=== PATIENT | male | born 1975 | race Caucasian/White ===

== ENCOUNTER 2019-09-02 08:46 | Outpatient (RCR) | payer BC, SELFPAY ==
--- NOTE | 2019-09-02 10:15 | PTOPEVAL ---
Thank you for referring Boris Saravia to [facility]. Please review, sign, date and return this plan of care [facility]. I agree with and certify that the following plan of care is medically necessary. Referring Physician Date Admitting Provider: Attending Provider: Jorge Mendez DO Referring Provider: *PT Outpatient Evaluation Start: 09/02/19 09:02 Freq: Status: Active Protocol: Document 09/02/19 09:02 J (Rec: 09/02/19 09:51 [id number]) Therapy Assessment Status Assessment Status Assessment Status Evaluation Evaluation Information Problem Diagnosis low back pain Onset 08/27/19 Additional Evaluation Detail oswestry = 48% functionally declined Subjective Information patient reports he has been Query Text:As Reported By Patient/ having pain in the R hip and Family leg for about 1 week. he reports he has been to the MD who feels he may have a herniated disc. patient reports the pain is less in the morning, but gets worse with more activity until he is unable to tolerate it any longer. he reports no injury, but reports he was moving a washer and dryer and might have tweaked his back. patient he has pain and some tingling in his foot. he reports the pain will progressively get worse and further down the leg with increased activities. Prior Level of Function Comments Additional Prior Level of Function prior to the , no issues Comments with the back or R LE at all. he reports he does work at [employer]. 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 patient is currently off work. he reports no imaging as of this date. he reports no change in medications, but did have a shot of toradol at the doctors office. Pain Assessment Timing of Pain Assessment Timing of Pain Assessment Assessment Pain Scale Pain Scale Used Numeric (1 - 10) Self Report Pain Assessment Lower Back Reported Pain Level 2 Pain Description
--- NOTE | 2019-09-12 13:57 | PCPTNOTE ---
patient called and cancelled appt due to flat tire. ROBERT
--- NOTE | 2019-09-14 16:08 | PCPTNOTE ---
patient cancelled appt today. ROBERT
--- NOTE | 2019-11-29 16:26 | PCPTNOTE ---
11/29/19 - patient has not been to therapy in several months. as of this date, patient will be DC'd from skilled PT services, and all progress towards goals will be taken from patients most recent evaluation/note. ZECHARIAH
== END 2019-09-23 09:38 | disposition home or self-care (01) ==
LOC: CHSPT 08:46
PROVIDERS: PCP Family Medicine; Visit Provider Family Medicine
DX: M54.5 Low back pain (principal)
CPT/HCPCS: 97014; 97110; 97161; G0283

== ENCOUNTER 2020-03-05 08:54 | Outpatient (CLI) | payer OTHER, SELFPAY ==
[2020-03-05 09:41] LABS: Hemoglobin A1C 6.3 % (<5.7)
== END 2020-03-05 08:55 | disposition home or self-care (01) ==
LOC: CHSLAB 08:59
PROVIDERS: PCP Family Medicine; Visit Provider Family Medicine
DX: E11.9 Type 2 diabetes mellitus without complications (principal); K21.9 Gastro-esophageal reflux disease without esophagitis; J44.9 Chronic obstructive pulmonary disease, unspecified; F17.200 Nicotine dependence, unspecified, uncomplicated; E66.9 Obesity, unspecified
CPT/HCPCS: 36415; 83036

== ENCOUNTER 2020-10-02 11:16 | Outpatient (CLI) | payer OTHER, SELFPAY ==
[2020-10-02 12:27] LABS: Alanine Aminotransferase 13 U/L (16-63); Albumin Level 3.7 g/dL (3.4-5.0); Alkaline Phosphatase 71 U/L (46-116); Anion Gap 11 mmol/L (8-16); Aspartate Amino Transferase 7 U/L (15-37); Bilirubin,Total 0.4 mg/dL (0.00-1.00); Blood Urea Nitrogen 10 mg/dL (7-18); Calcium 9.2 mg/dL (8.5-10.1); Carbon Dioxide 26 mmol/L (21-32); Chloride 100 mmol/L (98-108); Estimated Glomerular Filt Rate > 60; Glucose 117 mg/dL (70-99); Osmolality Calculated 284 mOsm/kg (285-295); Potassium 4.9 mmol/L (3.5-5.1); Sodium 137 mmol/L (136-145)
== END 2020-10-02 11:17 | disposition home or self-care (01) ==
LOC: CHSLAB 11:21
PROVIDERS: PCP Family Medicine; Visit Provider Nurse Practitioner Psychiatric/Mental Health
DX: Z79.899 Other long term (current) drug therapy (principal)
CPT/HCPCS: 36415; 80053; 80164

== ENCOUNTER 2020-12-04 14:20 | Outpatient (CLI) | payer OTHER, SELFPAY ==
[2020-12-06 19:16] LABS: Rubella IgG Antibody 2.15 Index
[2020-12-07 13:39] LABS: Hepatitis B Surface Antibody Nonreactive (Nonreactive)
== END 2020-12-04 14:21 | disposition home or self-care (01) ==
LOC: CHSLAB 14:23
PROVIDERS: PCP Family Medicine; Visit Provider Family Medicine
DX: Z02.0 Encounter for examination for admission to educational institution (principal)
CPT/HCPCS: 36415; 86706; 86735; 86762; 86765; 86787

== ENCOUNTER 2021-08-09 10:16 | Outpatient (CLI) | payer OTHER, SELFPAY ==
--- NOTE | ~2021-08-09 | XR_ITS ---
EXAMINATION: XR ankle RT min 3V INDICATION: Right ankle pain TECHNIQUE: Four views of the right ankle are obtained. COMPARISON: None available FINDINGS: There is no fracture, dislocation, or subluxation. The bones, soft tissues, and joint space s are normal. IMPRESSION: 1. No acute osseous abnormality. Reviewed, dictated and finalized at location B.
== END 2021-08-09 10:17 | disposition home or self-care (01) ==
LOC: CHSIMG 10:18
PROVIDERS: PCP Family Medicine; Visit Provider Family Medicine
DX: M25.571 Pain in right ankle and joints of right foot (principal)
CPT/HCPCS: 73610

== ENCOUNTER 2021-09-16 13:11 | Outpatient (CLI) | payer OTHER, SELFPAY ==
[2021-09-16 13:20] LABS: Hematocrit 37.4 % (40.0-54.0); Hemoglobin 13.1 g/dL (14.0-18.0); Mean Corpuscular Hemoglobin 34.5 pg (27.0-31.0); Mean Corpuscular Volume 98.4 fL (78.0-102.0); Mean Platelet Volume 10.7 fl (8.7-11.0); Platelet Count Result 190 K/mm3 (150-420); Red Cell Distribution Width 12.6 % (11.6-14.4); White Blood Count 7.3 K/mm3 (4.8-10.8)
[2021-09-16 13:30] LABS: Hemoglobin A1C 5.9 % (<5.7)
[2021-09-16 13:37] LABS: Alanine Aminotransferase 12 U/L (16-63); Albumin Level 3.6 g/dL (3.4-5.0); Alkaline Phosphatase 53 U/L (46-116); Anion Gap 4 mmol/L (8-16); Aspartate Amino Transferase < 10 U/L (15-37); Bilirubin,Total 0.3 mg/dL (0.00-1.00); Blood Urea Nitrogen 8 mg/dL (7-18); Calcium 8.7 mg/dL (8.5-10.1); Carbon Dioxide 30 mmol/L (21-32); Chloride 100 mmol/L (98-108); Cholesterol 88 mg/dL (0-200); Estimated Glomerular Filt Rate > 60; Glucose 106 mg/dL (70-99); HDL Direct 44 mg/dL (40-60); LDL Cholesterol Calculated 32 mg/dL (<130); Osmolality Calculated 276 mOsm/kg (285-295); Potassium 4.4 mmol/L (3.5-5.1); Sodium 134 mmol/L (136-145); Triglycerides 60 mg/dL (0-150)
== END 2021-09-16 13:12 | disposition home or self-care (01) ==
LOC: CHSLAB 13:13
PROVIDERS: PCP Family Medicine; Visit Provider Family Medicine
DX: E11.9 Type 2 diabetes mellitus without complications (principal); I10 Essential (primary) hypertension
CPT/HCPCS: 36415; 80053; 80061; 83036; 85027

== ENCOUNTER 2021-11-07 07:08 | Emergency (ER) | payer OTHER, SELFPAY ==
[2021-11-07] VITALS (7 sets, daily range): BP systolic 122–154; BP diastolic 68–91; PULSE 61–85; RESP 14–20; TEMP 36.3–37.1; O2SAT 97–100
--- NOTE | ~2021-11-07 | CT_ITS ---
EXAMINATION: CTA chest PE protocol DATE: 11/07/2021 08:47 INDICATION: Left anterior chest pain. Left arm pain. TECHNIQUE: Computed tomography angiography (CTA) of the chest was performed with 100 mL Omnipaque-350 intravenous contrast timed to evaluate the pulmonary arteries. Coronal maximum intensity projection 3D-reconstructions were created by the technologist. Automated exposure control and iterative reconst ruction technique were employed. The dose-length product was 569.52 mGy-cm. COMPARISON: Chest CT 07/13/2012 FINDINGS: There is mild emphysema. There are patchy groundglass opacities in the lower lobes, right m iddle lobe, and lingula. No pleural effusion. There is moderate stenosis of proximal left subclavian artery. The heart size is normal. There are coronary artery calcifications. No pericardial effusion. There is no pulmonary embolus. There is mild thoracic spondylosis. IMPRESSION: 1. No pulmonary embolus. 2. Patchy groundglass opacities in the lower lungs suspicious for atypical pneumonia such as COVID-19 pneumonia. 9 3. Mild emphysema. Reviewed, dictated and finalized at location A. IMPRESSION: 1. No pulmonary embolus. 2. Patchy groundglass opacities in the lower lungs suspicious for atypical pneu monia such as COVID-19 pneumonia. 9 3. Mild emphysema.
--- NOTE | ~2021-11-07 | XR_ITS ---
EXAMINATION: XR chest 1V portable DATE: 11/07/2021 07:37 INDICATION: Left chest pain. TECHNIQUE: A single frontal view of the chest was obtained. COMPARISON: Chest single view 08/09/16, chest CT 07/13/2012 FINDINGS: There are mild airspace opacities in the lower lung zones. No pleural effusion or pneumotho rax. The heart size is normal. IMPRESSION: 1. Mild airspace opacities in the lower lung zones, consistent with atelectasis versus pneumonia. Reviewed, dictated and finalized at location A.
--- NOTE | 2021-11-07 07:17 | ED.CHESTPAIN ---
HPI - Chest Pain General Chief Complaint: Chest Pain Stated Complaint: chest pain Time Seen by Provider: 11/07/21 07:17 Source: patient Mode of arrival: ambulatory History of Present Illness HPI narrative: 45-year-old male with a history of smoking, hypertension, diabetes mellitus, dyslipidemia presented to the ER with a 1 hour history of -- left chest pain radiating to his left neck and shoulder. The pain is rated as 8/10. The pain came on while the patient was resting. Pain is worse on deep breathing. No nausea/ vomiting. No shortness of breath. No prior episodes of similar pain. pain is intermittent. No cough or sputum production. MD complaint: chest pain Onset (ago): hour(s) ( Started 1 hour ago) Timing of current episode: constant Onset: during rest Pain location: left chest Pain radiation: left arm and neck Pain scale (0-10): 8 Quality: aching and sharp Relieving factors: nothing Exacerbating factors: inspiration Treatment prior to arrival: none Risk Factors Coronary artery disease risk factors: diabetes, smoking history, hyperlipidemia and hypertension Thoracic aortic dissection risk factors: longstanding hypertension Related Data Home Medications Medication Instructions Recorded Confirmed divalproex 500 mg tablet,delayed 500 mg PO Q12H 02/11/19 11/07/21 release (Depakote) buspirone 10 mg tablet 10 mg PO TID 04/13/19 11/07/21 escitalopram oxalate 10 mg tablet 10 mg PO BID 07/11/19 11/07/21 (Lexapro) paliperidone palmitate 234 mg/1.5 234 mg IM Q30D 02/11/21 11/07/21 mL intramuscular syringe (Invega Sustenna) Allergies Allergy/AdvReac Type Severity Reaction Status Date / Time Penicillins Allergy Intermediate Unknown Verified 11/07/21 07:18 varenicline [Chantix] Allergy Intermediate Unknown Verified 09/16/21 07:30 Sulfa (Sulfonamide Allergy Mild Unknown Verified 09/16/21 07:30 Antibiotics) Review of Systems Review of Systems: All systems reviewed & are unremarkable except as noted in HPI and below Constitutional: Constitutional: Reports as per HPI and Reports no additional constitutional complaints Eyes: Eyes: Reports as per HPI and Reports no additional eye complaints ENT: Reports system reviewed and no additional complaints, except as documented and Reports as per HPI Cardiovascular: Cardiovascular: Reports as per HPI, Reports no additional cardiovascular complaints, Reports chest pain and Reports radiating jaw, neck or arm pain Respiratory: Respiratory: Reports as per HPI and Reports no additional respiratory complaints Gastrointestinal: Gastrointestinal: Reports as per HPI and Reports no additional gastrointestinal complaints Genitourinary: Genitourinary: Reports no additional male genitourinary complaints and Reports as per HPI Musculoskeletal: Musculoskeletal: Reports no additional musculoskeletal complaints and Reports as per HPI Integumentary/Breasts: Skin/Breast: Reports system reviewed and no additional complaints, except as docu and Reports as per HPI Neurologic: Reports system reviewed and no additional complaints, except as documented and Reports as per HPI Psychiatric: Psychiatric: Reports no additional psychiatric complaints and Reports as per HPI Endocrine: Endocrine: Reports no additional endocrine complaints and Reports as per HPI Hematologic/Lymphatic: Hematologic/Lymphatic: Reports no additional hematologic/lymphatic complaints and Reports as per HPI Allergic/Immunologic: Allergic/Immunologic: Reports no additional allergic/immunologic complaints and Reports as per HPI PMFSH Past Medical History Medical History Anxiety and depression COPD (chronic obstructive pulmonary disease) Essential hypertension LAZARUS (generalized anxiety disorder) GERD without esophagitis Insomnia disorder with non-sleep disorder mental comorbidity Nicotine dependence Obesity (BMI 30-39.9) Schizoaffective disorder, bipolar type
--- NOTE | 2021-11-07 07:18 | ECG_ITS ---
Measurements Intervals [place] Rate: 78 P: 51 NH: 157 QRS: 88 QRSD: 85 T: 41 QT: 367 QTc: 419 Interpretive Statements SINUS RHYTHM NORMAL ECG NO PREVIOUS ECG AVAILABLE FOR COMPARISON Electronically Signed On 11-07-2021 15:19:43 CDT by Connor Dale M.D.
[2021-11-07] MEDS: ASPIRIN 81 MG CHEWABLE TABLET 324 MG PO (07:37)
[2021-11-07] MEDS: MORPHINE SULFATE (*CRX) 2 MG/ML INJ IV PUSH (07:38)
[2021-11-07 07:42] LABS: Basophils Absolute Auto 0.04 K/mm3 (0.00-0.10); Basophils Percent Auto 0.7 % (0.0-1.0); Eosinophils Percent Auto 1.7 % (1.0-6.0); Hematocrit 38.1 % (40.0-54.0); Hemoglobin 13.2 g/dL (14.0-18.0); Immature Granulocyte Absolute 0.01 K/mm3 (0.00-0.00); Immature Granulocyte Percent A 0.2 % (0.0-0.0); Lymphocytes Absolute Auto 2.43 K/mm3 (1.10-4.50); Lymphocytes Percent Auto 40.9 % (18.0-42.0); Mean Corpuscular HGB Conc 34.6 g/dL (32.0-36.0); Mean Corpuscular Hemoglobin 34.6 pg (27.0-31.0); Mean Corpuscular Volume 99.7 fL (78.0-102.0); Mean Platelet Volume 11.2 fl (8.7-11.0); Monocytes Absolute Auto 0.47 K/mm3 (0.10-0.90); Monocytes Percent Auto 7.9 % (2.0-11.0); Neutrophils Absolute Auto 2.9 K/mm3 (1.7-7.2); Neutrophils Percent Auto 48.6 % (50.0-70.0); Platelet Count Result 210 K/mm3 (150-420); Red Blood Count 3.82 M/mm3 (4.70-6.10); Red Cell Distribution Width 12.8 % (11.6-14.4); White Blood Count 5.9 K/mm3 (4.8-10.8)
[2021-11-07 08:00] LABS: Alanine Aminotransferase 11 U/L (16-63); Albumin Level 3.4 g/dL (3.4-5.0); Alkaline Phosphatase 56 U/L (46-116); Anion Gap 13 mmol/L (8-16); Aspartate Amino Transferase < 10 U/L (15-37); Bilirubin,Total 0.2 mg/dL (0.00-1.00); Blood Urea Nitrogen 10 mg/dL (7-18); Calcium 8.8 mg/dL (8.5-10.1); Carbon Dioxide 24 mmol/L (21-32); Chloride 101 mmol/L (98-108); Estimated CRCL calculation 79 ml/min; Estimated Glomerular Filt Rate > 60; Glucose 148 mg/dL (70-99); Osmolality Calculated 288 mOsm/kg (285-295); Potassium 4.1 mmol/L (3.5-5.1); Sodium 138 mmol/L (136-145); Total Protein 6.7 g/dL (6.4-8.2)
[2021-11-07 08:03] LABS: Troponin I 5.7 ng/L (0.00-60.4)
[2021-11-07 08:03] LABS: INR 0.9; NT Pro B Type Natriuretic Pept 169 pg/mL (0-125); Prothrombin Time 10.3 Seconds (9.50-12.10)
[2021-11-07 08:07] LABS: D Dimer 0.71 mg/L (0.19-0.50)
[2021-11-07] MEDS: SODIUM CHLORIDE 0.9% IV 500 ML 999 ML IV CONT (08:36)
[2021-11-07 09:47] LABS: Lactic Acid Reflex 2.6 mmol/L (0.4-2.0)
[2021-11-07 10:06] LABS: SARS-CoV-2 RNA PCR Negative (Negative)
[2021-11-07] MEDS: LACTATED RINGERS 1,000 ML 999 ML IV CONT (10:07)
[2021-11-07 10:28] LABS: Lactic Acid 0.7 mmol/L (0.4-2.0)
[2021-11-07 10:28] LABS: Reflex Lactic Acid Yes or No Add Lactic
[2021-11-07 11:48] LABS: Troponin I 6.2 ng/L (0.00-60.4)
== END 2021-11-07 12:29 | disposition home or self-care (01) ==
PROVIDERS: Emergency Provider Internal Medicine Critical Care Medicine; PCP Family Medicine
DX: J18.9 Pneumonia, unspecified organism (principal); R07.81 Pleurodynia; Z20.822 Contact with and (suspected) exposure to COVID-19; F17.200 Nicotine dependence, unspecified, uncomplicated
CPT/HCPCS: 36415; 71045; 71275; 80053; 83605; 83880; 84484; 85025; 85380; 85610; 85730; 87040; 93005; 96361; 96374; 99284; A9270; C9803; J2270; J7040; J7120; Q9967; U0003; U0005

== ENCOUNTER 2022-08-26 06:36 | Outpatient (CLI) | payer OTHER, SELFPAY ==
--- NOTE | ~2022-08-26 | MR_ITS ---
EXAMINATION: MR brain/brain stem wo con DATE: 08/26/2022 07:45 INDICATION: Headache. TECHNIQUE: Magnetic resonance imaging (MRI) of the brain and brainstem was performed without intraven ous contrast. COMPARISON: Brain MRI 08/16/2016 FINDINGS: There are a few foci of nonspecific increased T2-weighted signal intensity in the cerebral white matter, which is within normal limits for the patient's age. There is no intracranial hemorrhag e, acute infarction, or abnormal intracranial mass lesion. The ventricles are normal in size. The orb its are normal. The mastoid air cells are normal. The paranasal sinuses are clear. IMPRESSION: 1. Normal aging brain. Reviewed, dictated and finalized at location A. IMPRESSION: 1. Normal aging brain.
--- NOTE | ~2022-08-26 | XR_ITS ---
XR lumbar spine 2-3V 08/26/2022 07:18 Indication: Low back pain Procedure: 3 views lumbar spine Comparison: 09/07/2015 Findings: Vertebral body heights are maintained. No fracture, subluxation or dislocation. No evidence for spondylolisthesis. Pedicles intact. Sacral foramen are symmetric. There is mild disc narrowing a t L5-S1. There is mild facet hypertrophy at L5-S1. Impression: 1: Mild lumbar spondylosis. Reviewed, dictated and finalized at location L. Impression: 1: Mild lumbar spondylosis.
== END 2022-08-26 06:37 | disposition home or self-care (01) ==
PROVIDERS: PCP Family Medicine
DX: G43.109 Migraine with aura, not intractable, without status migrainosus (principal); M47.896 Other spondylosis, lumbar region
CPT/HCPCS: 70551; 72100

== ENCOUNTER 2022-09-05 08:59 | Outpatient (CLI) | payer OTHER, SELFPAY ==
[2022-09-05 09:54] LABS: Prostate Specific Antigen 0.2 ng/mL (< OR = 4.0)
[2022-09-05 12:46] LABS: Appearance Urine Clear (Clear); Bilirubin Urine Negative (Negative); Blood Urine Negative (Negative); Color Urine Light Yellow (Yellow); Glucose Urine UA Negative (Negative); Ketones Urine Negative (Negative); Leukocyte Esterase Ur Negative LEU/UL (Negative); Nitrate Urine Negative (Negative); Protein Urine Negative (Negative); Urobilinogen Urine 0.2 mg/dL (0.2-1.0)
[2022-09-05 12:49] LABS: Add Urine Microscopic? NO
== END 2022-09-05 09:00 | disposition home or self-care (01) ==
PROVIDERS: PCP Family Medicine; Visit Provider Family Medicine
DX: R35.1 Nocturia (principal); R35.0 Frequency of micturition
CPT/HCPCS: 36415; 81003; 84153; 88305; G0103

== ENCOUNTER 2022-09-09 07:17 | Outpatient (CLI) | payer OTHER, SELFPAY ==
--- NOTE | ~2022-09-09 | US_ITS ---
. EXAMINATION: US retroperitoneal limited DATE: 09/09/2022 07:53 INDICATION: Frequency of micturition. Postvoid residual. TECHNIQUE: Multiple ultrasound grayscale images of the kidneys were obtained. COMPARISON: CT abdomen and pelvis 08/09/2016 FINDINGS: The right kidney measures 10.8 x 5.2 x 5.9 cm. The left kidney measures 11.6 x 4.6 x 5.5 cm. The kidn eys demonstrate normal parenchymal echogenicity. There is no hydronephrosis. The bladder is normal. T he prevoid urinary volume is 28 mL. The postvoid urinary volume is 33 mL. IMPRESSION: 1. Normal kidneys. No hydronephrosis. 2. Bladder not well distended to begin the exam. Normal postvoid residual. Reviewed, dictated and finalized at location A.
== END 2022-09-09 07:18 | disposition home or self-care (01) ==
LOC: CHSIMG 07:18
PROVIDERS: PCP Family Medicine; Visit Provider Family Medicine
DX: R35.0 Frequency of micturition (principal)
CPT/HCPCS: 76775

== ENCOUNTER 2023-01-02 10:25 | Outpatient (CLI) | payer OTHER, SELFPAY ==
[2023-01-02 10:40] LABS: Basophils Absolute Auto 0.05 K/mm3 (0.00-0.10); Basophils Percent Auto 0.8 % (0.0-1.0); Eosinophils Absolute Auto 0.09 K/mm3 (0.02-0.50); Eosinophils Percent Auto 1.5 % (1.0-6.0); Hemoglobin 13.7 g/dL (14.0-18.0); Immature Granulocyte Absolute 0.01 K/mm3 (0.00-0.00); Immature Granulocyte Percent A 0.2 % (0.0-0.0); Lymphocytes Absolute Auto 2.72 K/mm3 (1.10-4.50); Lymphocytes Percent Auto 44.7 % (18.0-42.0); Mean Corpuscular HGB Conc 34.3 g/dL (32.0-36.0); Mean Corpuscular Hemoglobin 33.8 pg (27.0-31.0); Mean Corpuscular Volume 98.8 fL (78.0-102.0); Monocytes Absolute Auto 0.49 K/mm3 (0.10-0.90); Monocytes Percent Auto 8.1 % (2.0-11.0); Neutrophils Absolute Auto 2.7 K/mm3 (1.7-7.2); Neutrophils Percent Auto 44.7 % (50.0-70.0); Platelet Count Result 230 K/mm3 (150-420); Red Blood Count 4.05 M/mm3 (4.70-6.10); Red Cell Distribution Width 12.9 % (11.6-14.4); White Blood Count 6.1 K/mm3 (4.8-10.8)
--- NOTE | 2023-01-02 10:46 | ECG_ITS ---
Measurements Intervals [place] Rate: 67 P: 55 [place]: 158 QRS: 68 QRSD: 84 T: 72 QT: 392 QTc: 417 Interpretive Statements SINUS RHYTHM NORMAL ECG COMPARED TO ECG 11/07/2021 07:13:11 NO SIGNIFICANT CHANGES Electronically Signed On 01-02-2023 11:30:44 CDT by Nhan Aguilera D.O.
[2023-01-02 11:09] LABS: Alanine Aminotransferase 11 U/L (16-63); Albumin Level 3.8 g/dL (3.4-5.0); Alkaline Phosphatase 61 U/L (46-116); Anion Gap 8 mmol/L (8-16); Aspartate Amino Transferase < 10 U/L (15-37); Bilirubin,Total 0.4 mg/dL (0.00-1.00); Blood Urea Nitrogen 6 mg/dL (7-18); Calcium 9.4 mg/dL (8.5-10.1); Carbon Dioxide 27 mmol/L (21-32); Chloride 104 mmol/L (98-108); Cholesterol 115 mg/dL (0-200); Estimated Glomerular Filt Rate > 60; Glucose 105 mg/dL (70-99); HDL Direct 49 mg/dL (40-60); LDL Cholesterol Calculated 52 mg/dL (<130); Osmolality Calculated 285 mOsm/kg (285-295); Potassium 4.7 mmol/L (3.5-5.1); Sodium 139 mmol/L (136-145); Thyroid Stimulating Hormone 1.96 uIU/mL (0.36-3.74); Total Protein 6.4 g/dL (6.4-8.2); Triglycerides 69 mg/dL (0-150)
[2023-01-06 12:52] LABS: Vitamin D 25 Hydroxy 19 ng/mL (30-100)
== END 2023-01-02 10:26 | disposition home or self-care (01) ==
LOC: CHSLAB 10:26
PROVIDERS: PCP Nurse Practitioner Family; Visit Provider Nurse Practitioner Family
DX: I95.9 Hypotension, unspecified (principal)
CPT/HCPCS: 36415; 80053; 80061; 82306; 84443; 85025; 93005

== ENCOUNTER 2023-01-14 13:29 | Outpatient (CLI) | payer OTHER, SELFPAY ==
[2023-01-14 13:40] LABS: Appearance Urine Clear (Clear); Bilirubin Urine Negative (Negative); Blood Urine Negative (Negative); Color Urine Yellow (Yellow); Glucose Urine UA Negative (Negative); Ketones Urine Negative (Negative); Leukocyte Esterase Ur Negative (Negative); Nitrate Urine Negative (Negative); Protein Urine Negative (Negative)
[2023-01-14 13:41] LABS: Add Urine Microscopic? NO
== END 2023-01-14 13:30 | disposition home or self-care (01) ==
PROVIDERS: PCP Family Medicine; Visit Provider Nurse Practitioner Family
DX: I95.9 Hypotension, unspecified (principal)
CPT/HCPCS: 81003; 87086

== ENCOUNTER 2023-01-23 16:26 | Outpatient (CLI) | payer OTHER, SELFPAY ==
[2023-01-23 16:38] LABS: Occult Blood Negative (Negative)
== END 2023-01-23 16:27 | disposition home or self-care (01) ==
LOC: CHSLAB 16:27
PROVIDERS: PCP Nurse Practitioner Family; Visit Provider Nurse Practitioner Family
DX: R42 Dizziness and giddiness (principal)
CPT/HCPCS: 82272

== ENCOUNTER 2023-05-21 10:09 | Outpatient (CLI) | payer OTHER, MEDICAID, SELFPAY ==
[2023-05-21 10:33] LABS: Basophils Absolute Auto 0.04 K/mm3 (0.00-0.10); Basophils Percent Auto 0.7 % (0.0-1.0); Eosinophils Absolute Auto 0.12 K/mm3 (0.02-0.50); Hematocrit 37.4 % (40.0-54.0); Hemoglobin 12.8 g/dL (14.0-18.0); Immature Granulocyte Absolute 0.02 K/mm3 (0.00-0.00); Immature Granulocyte Percent A 0.3 % (0.0-0.0); Lymphocytes Absolute Auto 2.67 K/mm3 (1.10-4.50); Lymphocytes Percent Auto 44.3 % (18.0-42.0); Mean Corpuscular HGB Conc 34.2 g/dL (32.0-36.0); Mean Corpuscular Hemoglobin 32.9 pg (27.0-31.0); Mean Corpuscular Volume 96.1 fL (78.0-102.0); Mean Platelet Volume 9.8 fl (8.7-11.0); Monocytes Absolute Auto 0.38 K/mm3 (0.10-0.90); Monocytes Percent Auto 6.3 % (2.0-11.0); Neutrophils Absolute Auto 2.8 K/mm3 (1.7-7.2); Neutrophils Percent Auto 46.4 % (50.0-70.0); Platelet Count Result 214 K/mm3 (150-420); Red Blood Count 3.89 M/mm3 (4.70-6.10); Red Cell Distribution Width 12.5 % (11.6-14.4)
[2023-05-21 10:43] LABS: Hemoglobin A1C 5.6 % (<5.7)
[2023-05-21 11:40] LABS: Alanine Aminotransferase 20 U/L (16-63); Albumin Level 3.8 g/dL (3.4-5.0); Alkaline Phosphatase 74 U/L (46-116); Anion Gap 9 mmol/L (8-16); Aspartate Amino Transferase 14 U/L (15-37); Bilirubin Direct 0.1 mg/dL (0-0.2); Bilirubin,Total 0.3 mg/dL (0.00-1.00); Blood Urea Nitrogen 13 mg/dL (7-18); Calcium 8.7 mg/dL (8.5-10.1); Carbon Dioxide 25 mmol/L (21-32); Chloride 105 mmol/L (98-108); Cholesterol 117 mg/dL (0-200); Estimated Glomerular Filt Rate > 60; Glucose 113 mg/dL (70-99); HDL Direct 59 mg/dL (40-60); LDL Cholesterol Calculated 48 mg/dL (<130); Osmolality Calculated 289 mOsm/kg (285-295); Potassium 4.5 mmol/L (3.5-5.1); Sodium 139 mmol/L (136-145); Thyroid Stimulating Hormone 1.46 uIU/mL (0.36-3.74); Total Protein 6.6 g/dL (6.4-8.2); Triglycerides 49 mg/dL (0-150); Vitamin B12 609 pg/mL (193-986)
[2023-05-21 11:47] LABS: Folic Acid > 20.0 ng/mL (8.6->20)
[2023-05-26 12:12] LABS: Vitamin D 25 Hydroxy 28 ng/mL (30-100)
== END 2023-05-21 10:10 | disposition home or self-care (01) ==
PROVIDERS: PCP Nurse Practitioner Family; Visit Provider Nurse Practitioner Psychiatric/Mental Health
DX: I10 Essential (primary) hypertension (principal); J44.9 Chronic obstructive pulmonary disease, unspecified; E78.5 Hyperlipidemia, unspecified; R63.4 Abnormal weight loss; F31.9 Bipolar disorder, unspecified; F90.9 Attention-deficit hyperactivity disorder, unspecified type; F51.01 Primary insomnia; Z79.899 Other long term (current) drug therapy
CPT/HCPCS: 36415; 80053; 80061; 82248; 82306; 82607; 82746; 83036; 84439; 84443; 85025

== ENCOUNTER 2023-06-12 15:29 | Outpatient (CLI) | payer MEDICAID, SELFPAY ==
--- NOTE | ~2023-06-12 | XR_ITS ---
EXAMINATION: XR chest 2V DATE: 06/12/2023 15:53 INDICATION: Chest pain on breathing. TECHNIQUE: Frontal and lateral views of the chest were obtained. COMPARISON: Chest single view 11/07/2021 FINDINGS: There is no pneumonia, pleural effusion, or pneumothorax. The heart size is normal. IMPRESSION: 1. No acute cardiopulmonary disease. Reviewed, dictated and finalized at location E. W[employer]CH[employer]IC
--- NOTE | 2023-06-12 15:45 | ECG_ITS ---
Measurements Intervals [place] Rate: 53 P: 49 SD: 170 QRS: 64 QRSD: 85 T: 61 QT: 422 QTc: 400 Interpretive Statements SINUS BRADYCARDIA RSR' IN V1 OR V2, PROBABLY NORMAL VARIANT BORDERLINE ECG COMPARED TO ECG 01/02/2023 10:55:52 SINUS BRADYCARDIA NOW PRESENT Electronically Signed On 06-12-2023 16:33:54 [employer]SEL [employer]ENER by Nhan Aguilera D.O.
[2023-06-12 16:46] LABS: Ferritin 160 ng/mL (26-388); Iron 68 ug/dL (65-175); Percent Iron Saturation 25 % (12-57)
== END 2023-06-12 15:30 | disposition home or self-care (01) ==
PROVIDERS: PCP Nurse Practitioner Family; Visit Provider Nurse Practitioner Family
DX: R79.89 Other specified abnormal findings of blood chemistry (principal); I10 Essential (primary) hypertension; R07.1 Chest pain on breathing; R00.1 Bradycardia, unspecified
CPT/HCPCS: 36415; 71046; 82728; 83540; 83550; 93005

== ENCOUNTER 2023-08-04 00:15 | Day surgery (SDC) | payer MEDICAID, SELFPAY ==
[2023-07-20 11:40] VITALS: BMI 25.9
[2023-08-04 09:02] VITALS: BP 121/66; PULSE 63; RESP 18; TEMP 36; O2SAT 100; BMI 26.3
[2023-08-04] MEDS: LACTATED RINGERS 1,000 ML 150 ML IV CONT (09:20)
[2023-08-04 09:22] LABS: Glucose Point of Care 103 mg/dl (65-105)
--- NOTE | 2023-08-04 10:19 | WPDANESEPPF ---
Anes - Initial Pre Proc Eval Procedure: Operation Date: 08/04/23 10:00 Proposed Procedures p Screening Colonoscopy - Patrick Birch DO Date/Time: 08/04/23 10:20 Surgeon: Patrick Birch DO Pre Op Diagnosis: Screening for malignant neoplasm of colon Patient Data Age: 47 Gender: M Height: 1.7 m Weight: 76.3 kg Last Vital Signs Temp 96.8 F L 08/04/23 09:02 Pulse 63 08/04/23 09:02 Resp 18 08/04/23 09:02 BP 121/66 08/04/23 09:02 Pulse Ox 100 08/04/23 09:02 O2 Del Method Room Air 08/04/23 09:02 Allergies Allergy/AdvReac Type Severity Reaction Status Date / Time Penicillins Allergy Intermediate Unknown Verified 08/04/23 09:08 varenicline [Chantix] Allergy Intermediate Unknown Verified 08/04/23 09:08 Sulfa (Sulfonamide Allergy Mild Unknown Verified 08/04/23 09:08 Antibiotics) Home Medications Medication Instructions Recorded Confirmed Type paliperidone palm (6 month) 1,092 1,092 mg (3.5 mL) IM .ONCE 07/01/22 08/04/23 Rx mg/3.5 mL intramuscular syringe [id number] #3.5 mL (Invega Halu) ubrogepant 50 mg tablet (Ubrelvy) 50 mg PO ONCE PRN migraine 07/09/22 08/04/23 Rx headache #30 tabs albuterol sulfate 90 mcg/actuation See Rx Instructions .Route 04/02/23 08/04/23 Rx aerosol inhaler .COMPLEX #8.5 ea metformin 500 mg tablet See Rx Instructions .Route 04/20/23 08/04/23 Rx .COMPLEX #180 tabs atorvastatin 40 mg tablet See Rx Instructions .Route 05/08/23 08/04/23 Rx .COMPLEX #90 tabs atomoxetine 100 mg capsule 100 mg PO DAILY #10 caps 05/22/23 08/04/23 Rx buspirone 10 mg tablet 15 mg PO TID 05/22/23 08/04/23 History escitalopram oxalate 20 mg tablet 20 mg PO DAILY #10 tabs 05/22/23 08/04/23 Rx (Lexapro) hydroxyzine HCl 25 mg tablet 25 mg PO TID anxiety #10 tabs 05/26/23 08/04/23 Rx topiramate 25 mg tablet 75 mg PO BID 05/26/23 08/04/23 History cholecalciferol (vitamin D3) 1,250 1,250 mcg PO WEEKLY #8 caps 05/29/23 08/04/23 Rx mcg (50,000 unit) capsule tamsulosin 0.4 mg capsule See Rx Instructions .Route 06/01/23 08/04/23 Rx .COMPLEX #90 caps fluticasone furoate 100 1 inh inhalation Q24H #60 ea 06/25/23 08/04/23 Rx mcg-vilanterol 25 mcg/dose inhalation powder (Breo Ellipta) Laboratory Tests 08/04/23 09:14 POC Capillary Glucose 103 mg/dl (65-105) Patient hx anesthesia problems: none Family hx anesthesia problems: none Results Review: All pre-operative results and documents have been reviewed as part of the pre-operative evaluation. [facility] Past Medical History Medical History (Updated 06/25/23 @ 13:42 by Humberto Carrera APRN) Anxiety and depression Essential hypertension LAZARUS (generalized anxiety disorder) GERD without esophagitis Insomnia disorder with non-sleep disorder mental comorbidity Nicotine dependence Schizoaffective disorder, bipolar type Surgical History Surgical History History of removal of skin mole from Scalp as child Family History Family History Brother Family history of type 2 diabetes mellitus Father Family history of type 2 diabetes mellitus Social History Social History Smoking packs per day: 1 Smoking cigarettes per day: 20.0 Years smoked: 36 Smoking pack-years: 36.00 Smoking status: Current every day smoker Tobacco type: cigarettes Alcohol intake: former Drinks per week: 25 Alcohol use details: teen Substance use type: marijuana Living arrangements: with family Spiritual care concerns: No Anes - Eval Final PreProcedure Day of Procedure 08/04/23 10:20 Patient weight: normal Heart: regular rate and rhythm Lungs: clear to auscultation Airway: Mallampati scale class II Neurological: alert and oriented Last oral intake: >/= 8 hours ASA classification: III Emergent: no Anesthetic plan: procee
--- NOTE | 2023-08-04 10:30 | PM.IMHP ---
H&P: HPI History of Present Illness Date/Time: 08/04/23 10:30 Chief Complaint: Screening for colorectal cancer Narrative: This is a 47-year-old man who presents for his 1st colonoscopy. He denies any hematochezia or melena. He denies any family history of colon cancer. Patient has had some unintentional weight loss but denies any bowel symptoms. Review of Systems Review of Systems: All systems reviewed & are unremarkable except as noted in HPI and below Constitutional: Constitutional: Denies chills, Denies fever(s), Denies headache(s) and Reports weight loss Eyes: Eyes: Denies change in vision ENT: Denies dizziness, Denies headache(s), Denies neck mass and Denies throat swelling Cardiovascular: Cardiovascular: Denies chest pain, Denies lightheadedness and Denies dyspnea Respiratory: Respiratory: Denies cough, Denies dyspnea and Denies wheezing Gastrointestinal: Gastrointestinal: Denies abdominal pain, Denies change in bowel habits, Denies nausea and Denies vomiting Genitourinary: Genitourinary: Denies hematuria and Denies dysuria Musculoskeletal: Musculoskeletal: Reports as per HPI Integumentary/Breasts: Skin/Breast: Reports as per HPI Neurologic: Denies dizziness and Denies headache(s) Allergic/Immunologic: Allergic/Immunologic: Denies throat swelling and Denies wheezing PMFSH Past Medical History Medical History (Updated 08/04/23 @ 10:30 by Patrick Birch DO) Anxiety and depression Essential hypertension LAZARUS (generalized anxiety disorder) GERD without esophagitis Insomnia disorder with non-sleep disorder mental comorbidity Nicotine dependence Schizoaffective disorder, bipolar type Surgical History Surgical History History of removal of skin mole from Scalp as child Family History Family History Brother Family history of type 2 diabetes mellitus Father Family history of type 2 diabetes mellitus Social History Social History Smoking packs per day: 1 Smoking cigarettes per day: 20.0 Years smoked: 36 Smoking pack-years: 36.00 Smoking status: Current every day smoker Tobacco type: cigarettes Alcohol intake: former Drinks per week: 25 Alcohol use details: teen Substance use type: marijuana Living arrangements: with family Spiritual care concerns: No Meds Home Medications and Allergies Home Medications Medication Instructions Recorded Confirmed Type paliperidone palm (6 month) 1,092 1,092 mg (3.5 mL) IM .ONCE 07/01/22 08/04/23 Rx mg/3.5 mL intramuscular syringe [id number] #3.5 mL (Invega Shoshana) ubrogepant 50 mg tablet (Ubrelvy) 50 mg PO ONCE PRN migraine 07/09/22 08/04/23 Rx headache #30 tabs albuterol sulfate 90 mcg/actuation See Rx Instructions .Route 04/02/23 08/04/23 Rx aerosol inhaler .COMPLEX #8.5 ea metformin 500 mg tablet See Rx Instructions .Route 04/20/23 08/04/23 Rx .COMPLEX #180 tabs atorvastatin 40 mg tablet See Rx Instructions .Route 05/08/23 08/04/23 Rx .COMPLEX #90 tabs atomoxetine 100 mg capsule 100 mg PO DAILY #10 caps 05/22/23 08/04/23 Rx buspirone 10 mg tablet 15 mg PO TID 05/22/23 08/04/23 History escitalopram oxalate 20 mg tablet 20 mg PO DAILY #10 tabs 05/22/23 08/04/23 Rx (Lexapro) hydroxyzine HCl 25 mg tablet 25 mg PO TID anxiety #10 tabs 05/26/23 08/04/23 Rx topiramate 25 mg tablet 75 mg PO BID 05/26/23 08/04/23 History cholecalciferol (vitamin D3) 1,250 1,250 mcg PO WEEKLY #8 caps 05/29/23 08/04/23 Rx mcg (50,000 unit) capsule tamsulosin 0.4 mg capsule See Rx Instructions .Route 06/01/23 08/04/23 Rx .COMPLEX #90 caps fluticasone furoate 100 1 inh inhalation Q24H #60 ea 06/25/23 08/04/23 Rx mcg-vilanterol 25 mcg/dose inhalation powder (Breo Ellipta) Allergies Allergy/AdvReac Type Severity Reaction Status Date / Time Penicillins
[2023-08-04 11:02] VITALS: BP 134/78; PULSE 62; RESP 26; O2SAT 100
[2023-08-04 11:12] VITALS: BP 134/82; PULSE 62; RESP 22; O2SAT 100
[2023-08-04 11:22] VITALS: BP 134/82; PULSE 63; RESP 18; O2SAT 100
== END 2023-08-04 11:30 | disposition home or self-care (01) ==
PROVIDERS: PCP Nurse Practitioner Family; Visit Provider Surgery
PROC: 0DJD8ZZ Inspection of Lower Intestinal Tract, Via Natural or Artificial Opening Endoscopic (ICD-10-PCS; CPT 45378; principal; 2023-08-04 10:00)
DX: Z12.11 Encounter for screening for malignant neoplasm of colon (principal); K62.1 Rectal polyp; K57.30 Diverticulosis of large intestine without perforation or abscess without bleeding; Z79.84 Long term (current) use of oral hypoglycemic drugs; I10 Essential (primary) hypertension; K21.9 Gastro-esophageal reflux disease without esophagitis; F25.0 Schizoaffective disorder, bipolar type; F41.8 Other specified anxiety disorders; F17.210 Nicotine dependence, cigarettes, uncomplicated
CPT/HCPCS: 45380; 82948; 88305; J2704; J7120

== ENCOUNTER 2023-12-15 10:25 | Outpatient (CLI) | payer OTHER, SELFPAY ==
--- NOTE | ~2023-12-15 | CT_ITS ---
CT Scan of the Chest without Contrast: Clinical Indication: Lung cancer screening, nicotine dependence Technique: Contiguous sections were acquired throughout the chest without intravenous contrast. Dose reduction technique was used on this scan by utilizing automated exposure control and iterative recon struction technique. The dose-length product (DLP) was 82.58 mGy-cm. Findings: There is no evidence of any significant mediastinal, hilar or axillary lymphadenopathy. The mediastin al soft tissues appear normal. There is no evidence of pleural or pericardial effusion. The lungs are clear. No pulmonary nodules or infiltrates are noted. Images through the upper abdomen reveal no abnormalities. Impression: Lung RADS 1: Negative. 12 month follow-up screening CT advised. Reviewed, dictated and finalized at location . Impression: Lung RADS 1: Negative. 12 month follow-up screening CT advised.
== END 2023-12-15 10:26 | disposition home or self-care (01) ==
LOC: CHSIMG 12:01
PROVIDERS: PCP Nurse Practitioner Family; Visit Provider Nurse Practitioner Family
DX: F17.210 Nicotine dependence, cigarettes, uncomplicated (principal); R04.2 Hemoptysis; R06.02 Shortness of breath
CPT/HCPCS: 71271

== ENCOUNTER 2024-06-07 12:52 | Outpatient (CLI) | payer OTHER, SELFPAY ==
[2024-06-07 13:09] LABS: Basophils Absolute Auto 0.05 K/mm3 (0.00-0.10); Basophils Percent Auto 0.5 % (0.0-1.0); Eosinophils Absolute Auto 0.13 K/mm3 (0.02-0.50); Eosinophils Percent Auto 1.3 % (1.0-6.0); Hematocrit 39.4 % (40.0-54.0); Hemoglobin 13.2 g/dL (14.0-18.0); Immature Granulocyte Absolute 0.04 K/mm3 (0.00-0.00); Immature Granulocyte Percent A 0.4 % (0.0-0.0); Lymphocytes Absolute Auto 2.13 K/mm3 (1.10-4.50); Lymphocytes Percent Auto 21.8 % (18.0-42.0); Mean Corpuscular HGB Conc 33.5 g/dL (32-36); Mean Corpuscular Hemoglobin 32.5 pg (27.0-31.0); Mean Platelet Volume 9.1 fl (8.7-11.0); Monocytes Absolute Auto 0.71 K/mm3 (0.10-0.90); Monocytes Percent Auto 7.3 % (2.0-11.0); Neutrophils Percent Auto 68.7 % (50.0-70.0); Platelet Count Result 271 K/mm3 (150-420); Red Blood Count 4.06 M/mm3 (4.70-6.10); Red Cell Distribution Width 12.8 % (11.6-14.4); White Blood Count 9.8 K/mm3 (4.8-10.8)
[2024-06-07 13:18] LABS: Hemoglobin A1C 5.5 % (<5.7)
[2024-06-07 14:07] LABS: Alanine Aminotransferase 15 U/L (16-63); Albumin Level 3.5 g/dL (3.4-5.0); Alkaline Phosphatase 111 U/L (46-116); Anion Gap 8 mmol/L (4-12); Aspartate Amino Transferase < 10 U/L (15-37); Bilirubin Direct 0.1 mg/dL (0-0.2); Bilirubin,Total 0.3 mg/dL (0.00-1.00); Blood Urea Nitrogen 9 mg/dL (7-18); Calcium 8.7 mg/dL (8.5-10.1); Carbon Dioxide 28 mmol/L (21-32); Chloride 104 mmol/L (98-108); Cholesterol 165 mg/dL (0-200); Estimated Glomerular Filt Rate > 60; Folic Acid 14.5 ng/mL (8.6->20); Free T4 Free Thyroxine 0.94 ng/dL (0.76-1.46); Glucose 61 mg/dL (70-99); HDL Direct 59 mg/dL (40-60); LDL Cholesterol Calculated 90 mg/dL (<130); Osmolality Calculated 286 mOsm/kg (285-295); Potassium 3.9 mmol/L (3.5-5.1); Prostate Specific Antigen 0.4 ng/mL (< OR = 4.0); Sodium 140 mmol/L (136-145); Thyroid Stimulating Hormone 1.89 uIU/mL (0.36-3.74); Total Protein 6.6 g/dL (6.4-8.2); Triglycerides 80 mg/dL (0-150); Vitamin B12 286 pg/mL (193-986)
[2024-06-09 01:19] LABS: Vitamin D 25 Hydroxy 18 ng/mL (30-100)
== END 2024-06-07 12:53 | disposition home or self-care (01) ==
PROVIDERS: PCP Family Medicine; Visit Provider Nurse Practitioner Psychiatric/Mental Health
DX: I10 Essential (primary) hypertension (principal); Z79.899 Other long term (current) drug therapy; J44.9 Chronic obstructive pulmonary disease, unspecified; G43.909 Migraine, unspecified, not intractable, without status migrainosus; E78.5 Hyperlipidemia, unspecified; N40.0 Benign prostatic hyperplasia without lower urinary tract symptoms
CPT/HCPCS: 36415; 80053; 80061; 82248; 82306; 82607; 82746; 83036; 84153; 84439; 84443; 85025; G0103

== ENCOUNTER 2024-12-12 06:01 | Emergency (ER) | payer BC, SELFPAY ==
--- NOTE | ~2024-12-12 | CT_ITS ---
EXAMINATION: CT chest high resolution w con DATE: 12/12/2024 07:11 INDICATION: left chest wall pain X 1 MONTH. TECHNIQUE: Computed tomography (CT) of the chest was performed with 100 mL Omnipaque-350 intravenous contrast. Additional 3D reconstructions utilizing coronal maximum intensity projection (MIP) were performed. Automated exposure control and iterative reconstruction technique were employed. The dose-length product was 354.62 mGy-cm. COMPARISON: Chest CT dated 12/15/2023 FINDINGS: Mild emphysema. Mild linear discoid atelectasis/scarring in the lingula. Azygos lobe and fissure at the right upper lung. Unchanged 3-4 mm left upper lobe nodule. No pneumonia, pulmonary edema, pleural effusion or pneumothorax. Heart size is normal. Atherosclerotic coronary artery calcifications. No pericardial effusion. Thoracic aorta is normal in caliber with no dissection. No pathologically enlarged thoracic lymphadenopathy. Visualized upper abdomen is unremarkable. Mild to moderate thoracic spondylosis with chronic appearing mild anterior wedging of a couple mid thoracic vertebral bodies. IMPRESSION: 1. Mild emphysema. No acute cardiopulmonary disease. 2. 3 to 4 mm left upper lobe pulmonary nodule. Optional follow-up low-dose noncontrast chest CT could be considered at 12 months. Reviewed, dictated and finalized at location A. IMPRESSION: 1. Mild emphysema. No acute cardiopulmonary disease. 2. 3 to 4 mm left upper lobe pulmonary nodule. Optional follow-up low-dose nonc ontrast chest CT could be considered at 12 months.
[2024-12-12 06:01] VITALS: BP 159/83; PULSE 81; RESP 18; TEMP 36.3; O2SAT 97
--- NOTE | 2024-12-12 06:11 | ED.GENADULT ---
HPI - General Adult General Chief complaint: Extremity Problem,Nontraumatic <Jorge Mendez DO - Last Filed: 12/12/24 06:14> Stated complaint: pain left rib <Jorge Mendez DO - Last Filed: 12/12/24 06:14> Time Seen by Provider: 12/12/24 06:06 <Jorge Mendez DO - Last Filed: 12/12/24 06:14> History of Present Illness HPI narrative: Boris is a 49M with a PMH of BPH, migraines, insomnia, schizoaffective disorder, DMII, tobacco abuse, COPD and HTN that presented to the ED with left chest wall pain. It has been waxing and waning for a month. It is a tender nodule on his left lateral chest, nearly in the axilla. There is no dyspnea, lightheadedness, N/V or changes with exertion. <Jorge Mendez DO - Last Filed: 12/12/24 06:14> Related Data Home medications: Home Medications ?Medication ?Instructions ?Recorded ?Confirmed ?Last Taken ?Type buspirone 10 mg tablet 15 mg PO TID 05/22/23 12/29/23 Unknown History topiramate 25 mg tablet 75 mg PO BID 05/26/23 12/29/23 Unknown History <Jorge Mendez DO - Last Filed: 12/12/24 06:14> Allergies/adverse reactions: Allergies Allergy/AdvReac Type Severity Reaction Status Date / Time Penicillins Allergy Intermediate Unknown Verified 12/12/24 06:06 varenicline (Chantix) Allergy Intermediate Unknown Verified 12/12/24 06:06 Sulfa (Sulfonamide Allergy Mild Unknown Verified 12/12/24 06:06 Antibiotics) <Jorge Mendez DO - Last Filed: 12/12/24 06:14> Review of Systems Review of Systems: All systems reviewed & are unremarkable except as noted in HPI and below <Jorge Mendez, DO - Last Filed: 12/12/24 06:14> [facility] Past Medical History Medical History: Medical History Diverticulosis of large intestine without perforation or abscess without bleeding Insomnia disorder with non-sleep disorder mental comorbidity Schizoaffective disorder, bipolar type Nicotine dependence LAZARUS (generalized anxiety disorder) Essential hypertension GERD without esophagitis Anxiety and depression <Jorge Mendez DO Last Filed: 12/12/24 06:14> Surgical History Surgical History: Surgical History History of removal of skin mole from Scalp as child <Jorge Mendez DO - Last Filed: 12/12/24 06:14> Family History Family History: Family History Brother Family history of type 2 diabetes mellitus Father Family history of type 2 diabetes mellitus <Jorge Mendez DO - Last Filed: 12/12/24 06:14> Social History Social History: Social History Smoking packs per day: 1 Smoking cigarettes per day: 20.0 Years smoked: 36 Smoking pack-years: 36.00 Smoking status: Current every day smoker Tobacco type: cigarettes Alcohol intake: former Drinks per week: 25 Alcohol use details: teen Substance use type: marijuana Living arrangements: with family Spiritual care concerns: No <Jorge Mendez DO - Last Filed: 12/12/24 06:14> Exam Const: General: cooperative, healthy appearing, comfortable, no acute distress, well developed, alert, awake and Physically active <Jorge Mendez DO - Last Filed: 12/12/24 06:14> Orientation/consciousness: oriented to person, oriented to place and oriented to time <Jorge Mendez DO Last Filed: 12/12/24 06:14> HENMT: Head: normal to inspection, normocephalic and atraumatic <Jorge Mendez DO Last Filed: 12/12/24 06:14> Ears: hearing grossly normal bilaterally and external ears normal <Jorge Mendez DO - Last Filed: 12/12/24 06:14> Face/Nose/Sinus: Normal external nose present <Jorge Mendez Last Filed: 12/12/24 06:14> Eyes: General: appearance normal, both eyes and all related structures <Jorge Mendez DO - Last Filed: 12/12/24 06:14> Periorbital: periorbital findings normal <Jorge Mendez DO - Last Filed: 12/12/24 06:14> Sclera: sclerae normal <Jorge Mendez DO - Last Filed: 12/12/24 06:14> Pupils: Equal, round and reactive pupils present <Jorge Mendez DO - Last Filed: 12/12/24 06:14> Neck: Neck: normal visual inspection <Jorge Mendez DO - Last Filed: 12/12/24 06:14> Chest: Chest palpation & inspection: normal inspection of the chest <Jorge Mendez - Last Filed: 12/12/24 06:14> Other: TTP in the left lateral upper chest with small tender nodule <Jorge Mendez DO - Last Filed: 12/12/24 06:14> Resp: Effort & Inspection: normal respiratory effort, able to speak in complete sentences and no respiratory distress <Jorge Mendez DO - Last Filed: 12/12/24 06:14> Auscultation: clear to auscultation bilaterally <Jorge Mendez - Last Filed: 12/12/24 06:14> Cardio: Jugular venous distension: no JVD <Jorge Mendez DO - Last Filed: 12/12/24 06:14> Rate: regular rate <Jorge Mendez DO - Last Filed: 12/12/24 06:14> Rhythm: regular rhythm <Jorge Mendez DO - Last Filed: 12/12/24 06:14> Skin: General skin exam: normal color and no rashes or lesions noted <Jorge Mendez DO - Last Filed: 12/12/24 06:14> Neuro: General: oriented to person, oriented to place and oriented to time <Jorge Mendez DO - Last Filed: 12/12/24 06:14> Cranial nerves: Yes Equal, round and reactive pupils present <Jorge Mendez DO - Last Filed: 12/12/24 06:14> Extrem: General: normal to inspection <Jorge Mendez DO - Last Filed: 12/12/24 06:14> Course Course Emergency Course: declined pain meds. Ordered labs and CT. <Jorge Mendez DO - Last Filed: 12/12/24 06:14> Vital Signs Vital signs: Vital Signs Temperature 36.3 C L 12/12/24 06:01 Pulse Rate 81 12/12/24 06:01 Respiratory Rate 18 12/12/24 06:01 Blood Pressure 159/83 H 12/12/24 06:01 Pulse Oximetry 97 12/12/24 06:01 Oxygen Delivery Room Air 12/12/24 06:01 Temperature 36.3 C L 12/12/24 06:01 Pulse Rate 81 12/12/24 06:01 Respiratory Rate 18 12/12/24 06:01 Blood Pressure 159/83 H 12/12/24 06:01 Pulse Oximetry 97 12/12/24 06:01 Oxygen Delivery Room Air 12/12/24 06:01 <Jorge Mendez DO - Last Filed: 12/12/24 06:14> Vital Signs Temperature 36.3 C L 12/12/24 06:01 Pulse Rate 81 12/12/24 06:01 Respiratory Rate 18 12/12/24 06:01 Blood Pressure 159/83 H 12/12/24 06:01 Pulse Oximetry 97 12/12/24 06:01 Oxygen Delivery Room Air 12/12/24 06:01 Temperature 36.3 C L 12/12/24 06:01 Pulse Rate 81 12/12/24 06:01 Respiratory Rate 18 12/12/24 06:01 Blood Pressure 159/83 H 12/12/24 06:01 Pulse Oximetry 97 12/12/24 06:01 Oxygen Delivery Room Air 12/12/24 06:01 <Suhail Harris MD - Last Filed: 12/12/24 08:08> Medical Decision Making MDM Narrative Medical decision making narrative: patient is a 49-year-old male with a left-sided midthoracic chest pain that is atypical in nature. He has a nodule on examination that he feels and that is felt. I took over this case at this time for morning shift change. Labs and CT scan are not acute for any findings. He will follow-up with his primary doctor in the next 1-2 weeks and further outpatient workup needed. <Suhail Harris MD - Last Filed: 12/12/24 08:08> Vital Signs Vital Signs: Vital Signs Temperature 36.3 C L 12/12/24 06:01 Pulse Rate 81 12/12/24 06:01 Respiratory Rate 18 12/12/24 06:01 Blood Pressure 159/83 H 12/12/24 06:01 Pulse Oximetry 97 12/12/24 06:01 Oxygen Delivery Room Air 12/12/24 06:01 Temperature 36.3 C L 12/12/24 06:01 Pulse Rate 81 12/12/24 06:01 Respiratory Rate 18 12/12/24 06:01 Blood Pressure 159/83 H 12/12/24 06:01 Pulse Oximetry 97 12/12/24 06:01 Oxygen Delivery Room Air 12/12/24 06:01 <Jorge Mendez DO - Last Filed: 12/12/24 06:14> Vital Signs Temperature 36.3 C L 12/12/24 06:01 Pulse Rate 81 12/12/24 06:01 Respiratory Rate 18 12/12/24 06:01 Blood Pressure 159/83 H 12/12/24 06:01 Pulse Oximetry 97 12/12/24 06:01 Oxygen Delivery Room Air 12/12/24 06:01 Temperature 36.3 C L 12/12/24 06:01 Pulse Rate 81 12/12/24 06:01 Respiratory Rate 18 12/12/24 06:01 Blood Pressure 159/83 H 12/12/24 06:01 Pulse Oximetry 97 12/12/24 06:01 Oxygen Delivery Room Air 12/12/24 06:01 <Suhail Harris MD - Last Filed: 12/12/24 08:08> Lab Data Lab results reviewed: Yes I reviewed the patient's lab results. <Suhail Harris MD - Last Filed: 12/12/24 08:08> Result diagrams: 12/12/24 06:24 <Jorge Mendez DO - Last Filed: 12/12/24 06:14> Labs: Lab Results 09/08/25 Range/Units 06:24 PT 9.8 (9.50-12.1) Seconds INR 0.9 Sodium 141 (137-145) mmol/L Potassium 4.4 (3.4-5.0) mmol/L Chloride 108 H (98-107) mmol/L Carbon Dioxide 24 (22-30) mmol/L Anion Gap 9 (4-12) mmol/L BUN 18 (9-20) mg/dL Creatinine 1.15 (0.7-1.3) mg/dL Estim Creat Clear Calc 72 ml/min Estimated GFR > 60 (59 - ) Glucose 124 H (65-110) mg/dL Calculated Osmolality 294 (285-295) mOsm/kg Calcium 9.3 (8.4-10.2) mg/dL Total Bilirubin 0.5 (0.2-1.3) mg/dL AST 28 (17-59) U/L ALT 16 (6-50) U/L Alkaline Phosphatase 90 (38-126) U/L Troponin I < 0.012 (0.000-0.034) ng/mL NT-Pro-B Natriuret Pep < 20 (19.9-100) pg/mL Total Protein 6.9 (6.3-8.2) g/dL Albumin 4.1 (3.5-5.1) g/dL Lipase 103 (23-300) U/L <Jorge Mendez, DO - Last Filed: 12/12/24 06:14> Lab Results 12/12/24 Range/Units 06:24 PT 9.8 (9.50-12.1) Seconds INR 0.9 Sodium 141 (137-145) mmol/L Potassium 4.4 (3.4-5.0) mmol/L Chloride 108 H (98-107) mmol/L Carbon Dioxide 24 (22-30) mmol/L Anion Gap 9 (4-12) mmol/L BUN 18 (9-20) mg/dL Creatinine 1.15 (0.7-1.3) mg/dL Estim Creat Clear Calc 72 ml/min Estimated GFR > 60 (59 - ) Glucose 124 H (65-110) mg/dL Calculated Osmolality 294 (285-295) mOsm/kg Calcium 9.3 (8.4-10.2) mg/dL Total Bilirubin 0.5 (0.2-1.3) mg/dL AST 28 (17-59) U/L ALT 16 (6-50) U/L Alkaline Phosphatase 90 (38-126) U/L Troponin I < 0.012 (0.000-0.034) ng/mL NT-Pro-B Natriuret Pep < 20 (19.9-100) pg/mL Total Protein 6.9 (6.3-8.2) g/dL Albumin 4.1 (3.5-5.1) g/dL Lipase 103 (23-300) U/L <Suhail Harris MD - Last Filed: 12/12/24 08:08> Imaging Data Attestation: I personally reviewed and interpreted this imaging study as follows: <Suhail Harris MD - Last Filed: 12/12/24 08:08> Radiologist's impression: CT scan of the chest with contrast was negative for acute process; solitary pulmonary nodule appreciated and COPD (primary doctor to follow up these changes) <Suhail Harris MD - Last Filed: 12/12/24 08:08> Discharge Plan Discharge Clinical Impression: Chest wall pain <Jorge Mendez DO - Last Filed: 12/12/24 06:14> Patient Disposition: Home <Jorge Mendez DO - Last Filed: 12/12/24 06:14> Condition: Stable <Jorge Mendez DO - Last Filed: 12/12/24 06:14> Instructions: Chest Wall Pain (ED) <Jorge Mendez DO - Last Filed: 12/12/24 06:14> Additional Instructions: Please follow-up with the primary doctor in the next 1-2 weeks. Further outpatient testing for chest pain and chest wall pain to be done with the doctor. Also there is a pulmonary nodule that needs follow-up in 1 year. <Jorge Mendez DO - Last Filed: 12/12/24 06:14> Patient Language: Azeri <Jorge Mendez DO - Last Filed: 12/12/24 06:14> Prescriptions: No Action hydroxyzine HCl 25 mg tablet 25 mg PO TID Qty: 10 0RF Rx Instructions: reported by psych as Vistaril (hydroxyzine palmoate) 25 mg TID for anxiety PRN topiramate 25 mg tablet 75 mg PO BID Invega Hafyera 1,092 mg/3.5 mL syringe 1,092 mg IM .ONCE [id number] Qty: 3.5 0RF atomoxetine 100 mg capsule 100 mg PO DAILY Qty: 10 0RF buspirone 10 mg tablet 15 mg PO TID escitalopram oxalate [Lexapro] 20 mg tablet 20 mg PO DAILY Qty: 10 0RF albuterol sulfate 90 mcg/actuation HFA aerosol inhaler See Rx Instructions .ROUTE .COMPLEX Qty: 8.5 3RF Dose Instruction: INSTILL 1 PUFF EVERY 4 HOURS NEEDED FOR SHORTNESS OF BREATH OR WHEEZING FOR COPD Rx Instructions: INSTILL 1 PUFF EVERY 4 HOURS NEEDED FOR SHORTNESS OF BREATH OR WHEEZING FOR COPD tamsulosin 0.4 mg capsule See Rx Instructions .ROUTE .COMPLEX Qty: 90 0RF Dose Instruction: TAKE 1 CAPSULE BY MOUTH EVERY DAY Rx Instructions: TAKE 1 CAPSULE BY MOUTH EVERY DAY <Jorge Mendez DO - Last Filed: 12/12/24 06:14> Follow-up/Referrals: Jorge Mendez DO [Primary Care Provider, Family Practice] <Jorge Mendez DO - Last Filed: 12/12/24 06:14> Time of Disposition: 08:08 <Jorge Mendez DO - Last Filed: 12/12/24 06:14> 08:08 <Suhail Harris MD - Last Filed: 12/12/24 08:08>
[2024-12-12 06:44] LABS: INR 0.9; Prothrombin Time 9.8 Seconds (9.50-12.1)
[2024-12-12 06:47] LABS: Alanine Aminotransferase 16 U/L (6-50); Albumin Level 4.1 g/dL (3.5-5.1); Alkaline Phosphatase 90 U/L (38-126); Anion Gap 9 mmol/L (4-12); Aspartate Amino Transferase 28 U/L (17-59); Bilirubin,Total 0.5 mg/dL (0.2-1.3); Blood Urea Nitrogen 18 mg/dL (9-20); Calcium 9.3 mg/dL (8.4-10.2); Carbon Dioxide 24 mmol/L (22-30); Chloride 108 mmol/L (98-107); Estimated CRCL calculation 72 ml/min; Estimated Glomerular Filt Rate > 60; Glucose 124 mg/dL (65-110); Lipase 103 U/L (23-300); Osmolality Calculated 294 mOsm/kg (285-295); Potassium 4.4 mmol/L (3.4-5.0); Sodium 141 mmol/L (137-145); Total Protein 6.9 g/dL (6.3-8.2)
[2024-12-12 06:56] LABS: NT Pro B Type Natriuretic Pept < 20 pg/mL (19.9-100); Troponin I < 0.012 ng/mL (0.000-0.034)
[2024-12-12 07:45] VITALS: BP 144/80; PULSE 66; RESP 17; O2SAT 97
[2024-12-12 08:14] VITALS: BP 144/80; PULSE 66; RESP 17; TEMP 36.6; O2SAT 97
== END 2024-12-12 08:14 | disposition home or self-care (01) ==
PROVIDERS: Emergency Provider Family Medicine; PCP Family Medicine
DX: R07.89 Other chest pain (principal); E11.9 Type 2 diabetes mellitus without complications; J44.9 Chronic obstructive pulmonary disease, unspecified; I10 Essential (primary) hypertension; F17.210 Nicotine dependence, cigarettes, uncomplicated
CPT/HCPCS: 36415; 71260; 80053; 83690; 83880; 84484; 85610; 99284; Q9967

== ENCOUNTER 2024-12-21 08:48 | Emergency (ER) | payer BC, SELFPAY ==
--- NOTE | ~2024-12-21 | US_ITS ---
EXAMINATION: US scrotum doppler DATE: 12/21/2024 09:57 INDICATION: Left testicular pain. TECHNIQUE: Grayscale and Doppler ultrasound images of the testes were obtained. COMPARISON: Abdomen and pelvis 08/09/16 FINDINGS: The right testis measures 3.8 x 2.8 x 2.1 cm. The left testis measures 4.0 x 2.7 x 2.1 cm. There is normal vascular flow to both testes. The right epididymis is normal with normal vascular flow. The left epididymis is normal with normal vascular flow. There is no varicocele or hydrocele. IMPRESSION: 1. Normal testes. Reviewed, dictated and finalized at location E. IMPRESSION: 1. Normal testes.
[2024-12-21 08:48] VITALS: BP 158/90; PULSE 88; RESP 16; TEMP 36.7; O2SAT 97
--- NOTE | 2024-12-21 09:00 | ED.MALEGU ---
HPI - Male Genitourinary General Chief complaint: Urogenital-Male Stated complaint: left testicle pain Time Seen by Provider: 12/21/24 08:59 Source: patient Mode of arrival: ambulatory Limitations: no limitations History of Present Illness HPI Narrative: 49-year-old male with a history of schizoaffective disorder, hypertension, anxiety / depression, GERD, diverticulosis, recently treated pleurisy presents to the ED with a 1 day hsitory fo -- left testicular pain. it started suddenly while he was coughing. No history of trauma. Pain radiates to the lower abdomen. No dysuria or hematuria. No prior history of testicular pain. No systemic illness Onset (ago): day(s) ( 1 day) Duration: constant Location: left testicle Radiation: abdomen Severity: moderate Quality: dull Relieving factors: rest Exacerbating factors: movement Associated symptoms: Reports denies other symptoms Related Data Home Medications ?Medication ?Instructions ?Recorded ?Confirmed ?Last Taken ?Type buspirone 10 mg tablet 15 mg PO TID 05/22/23 12/21/24 Unknown History topiramate 25 mg tablet 75 mg PO BID 05/26/23 12/21/24 Unknown History atomoxetine 100 mg capsule 100 mg PO DAILY 12/21/24 12/21/24 Unknown History olanzapine 10 mg tablet mg 12/21/24 Unknown History Allergies Allergy/AdvReac Type Severity Reaction Status Date / Time Penicillins Allergy Intermediate Unknown Verified 12/21/24 09:01 varenicline (Chantix) Allergy Intermediate Unknown Verified 12/21/24 09:01 Sulfa (Sulfonamide Allergy Mild Unknown Verified 12/21/24 09:01 Antibiotics) Review of Systems Review of Systems: All systems reviewed & are unremarkable except as noted in HPI and below PMFSH Past Medical History Medical History Diverticulosis of large intestine without perforation or abscess without bleeding Insomnia disorder with non-sleep disorder mental comorbidity Schizoaffective disorder, bipolar type Nicotine dependence LAZARUS (generalized anxiety disorder) Essential hypertension GERD without esophagitis Anxiety and depression Surgical History Surgical History History of removal of skin mole from Scalp as child Family History Family History Brother Family history of type 2 diabetes mellitus Father Family history of type 2 diabetes mellitus Social History Social History Smoking packs per day: 1 Smoking cigarettes per day: 20.0 Years smoked: 36 Smoking pack-years: 36.00 Smoking status: Current every day smoker Tobacco type: cigarettes Alcohol intake: former Drinks per week: 25 Alcohol use details: teen Substance use type: marijuana Living arrangements: with family Spiritual care concerns: No Exam Narrative: afebrile Const: General: no acute distress Limitations: no limitations HENMT: Head: normal to inspection Face/Nose/Sinus: Normal external nose present Face and sinus: normal facial exam Mouth: Yes Normal oral and palatal mucosa present Throat: posterior oropharynx normal Eyes: Conjunctivae: conjunctivae normal Pupils: Equal, round and reactive pupils present EOM: EOMs intact bilaterally Direct Ophthalmoscopy: no photophobia Neck: Neck: normal visual inspection, no lymphadenopathy and no meningeal signs Chest: Chest palpation & inspection: normal inspection of the chest Resp: Effort & Inspection: normal respiratory effort Auscultation: clear to auscultation bilaterally Cardio: Rate: regular rate Rhythm: regular rhythm GI: GI Palp: Yes Soft to palpation Auscultation: normal bowel sounds Other: no tenderness/ rigidity/rebound : General: Yes no CVA tenderness Male General Exam: Yes normal external exam Penis: Yes normal penis Scrotum: scrotum normal Testes: Testes normal, epididymides normal and testicular tenderness Other: left testicular tenderness. Testicle is oriented normally. No swelling noted about the testicle. Pain increases on elevation of the testicle. Normal cremasteric reflex. Back/Spine/Pelvis: Back: no CVA tenderness Cervical Spine: collar present Skin: General skin exam: normal color Rashes: no rashes Wounds: no wounds Neuro: General: patient oriented x3, moves all extremities and no meningeal signs Cranial nerves: Yes CN's II-XII intact bilaterally Speech: normal speech Gait exam (Neuro): Normal gait present Extrem: General: normal to inspection and no clubbing, cyanosis or edema Psych: Mental Status: mental status grossly normal Affect: normal affect Attitude: cooperative Course Course Emergency Course: acute onset left testicular pain without any systemic symptoms. There is testicular tenderness with positive Prehn sign. normal cremasteric reflex. testicular ultrasound did not show any interruption of flow. Normal epididymis. No evidence of varicocele or hydrocele. Urine examination is unremarkable. GC, chlamydia and RPR are pending. Patient is negative for HIV Vital Signs Vital signs: Vital Signs Temperature 36.7 C 12/21/24 08:48 Pulse Rate 88 12/21/24 08:48 Respiratory Rate 16 12/21/24 08:48 Blood Pressure 158/90 H 12/21/24 08:48 Pulse Oximetry 97 12/21/24 08:48 Oxygen Delivery Room Air 12/21/24 08:48 Temperature 36.7 C 12/21/24 08:48 Pulse Rate 88 12/21/24 08:48 Respiratory Rate 16 12/21/24 08:48 Blood Pressure 158/90 H 12/21/24 08:48 Pulse Oximetry 97 12/21/24 08:48 Oxygen Delivery Room Air 12/21/24 08:48 MDM - Male Genitourinary MDM Narrative Medical decision making narrative: testicular pain Medical Records Attestation: I reviewed the patient's medical records. Lab Data Attestation: I reviewed the patient's lab results. Labs: Lab Results 12/21/24 Range/Units 09:37 Urine Color Light yellow (Yellow) Urine Appearance Clear (Clear) Urine pH 6.0 (5.0-8.0) Ur Specific [place] <= 1.005 L (1.010-1.020) Urine Protein Negative (Negative) Urine Glucose (UA) Negative (Negative) Urine Ketones Negative (Negative) Ur Blood (Man) Negative (Negative) Urine Nitrate Negative (Negative) Urine Bilirubin Negative (Negative) Urine Urobilinogen 0.2 (0.2-1.0) mg/dL Leukocyte Esterase Rfl Negative (Negative) FLORI/UL CSF HIV-1 p24 Ag Scrn Negative (Negative) RPR Pending C. trachomatis (PCR) Pending HIV 1&2 Antibody Rapid Negative (Negative) N. gonorrhoeae (PCR) Pending Discharge Plan Discharge Clinical Impression: Left testicular pain Patient Disposition: Home Condition: Stable Instructions: Antibiotic Form, Testicle Pain (ED) Patient Language: Tamazight Prescriptions: No Action atomoxetine 100 mg capsule 100 mg PO DAILY olanzapine 10 mg tablet hydroxyzine HCl 25 mg tablet 25 mg PO TID Qty: 10 0RF Rx Instructions: reported by psych as Vistaril (hydroxyzine palmoate) 25 mg TID for anxiety PRN topiramate 25 mg tablet 75 mg PO BID albuterol sulfate 90 mcg/actuation HFA aerosol inhaler See Rx Instructions .ROUTE .COMPLEX Qty: 8.5 3RF Dose Instruction: INSTILL 1 PUFF EVERY 4 HOURS NEEDED FOR SHORTNESS OF BREATH OR WHEEZING FOR COPD Rx Instructions: INSTILL 1 PUFF EVERY 4 HOURS NEEDED FOR SHORTNESS OF BREATH OR WHEEZING FOR COPD Invega Hafyera 1,092 mg/3.5 mL syringe 1,092 mg IM .ONCE [id number] Qty: 3.5 0RF atomoxetine 100 mg capsule 100 mg PO DAILY Qty: 10 0RF buspirone 10 mg tablet 15 mg PO TID escitalopram oxalate [Lexapro] 20 mg tablet 20 mg PO DAILY Qty: 10 0RF tamsulosin 0.4 mg capsule See Rx Instructions .ROUTE .COMPLEX Qty: 90 0RF Dose Instruction: TAKE 1 CAPSULE BY MOUTH EVERY DAY Rx Instructions: TAKE 1 CAPSULE BY MOUTH EVERY DAY Follow-up/Referrals: Jorge Mendez DO [Primary Care Provider, Family Practice] Time of Disposition: 10:22
--- OUTSIDE RECORDS SUMMARY | 2024-12-21 09:26 | XMS_ITS | Clinical Summary ---
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 Gender Identity Not on file Sexual Orientation Not on file Plan of Treatment Health Maintenance Due Date Last Done Comments Colorectal Cancer Screening Colonoscopy (10 Years) 1973 Annual Physical 1976 Hepatitis C 11/26/1991 DTaP, Tdap and Td Vaccines ( 1 - Tdap) 1992 Hepatitis B Vaccines (1 of 3 - 19+ 3-dose series) 1992 Pneumococcal Vaccine: 50+ Ye ars (1 of 1 - PCV) 11/26/2023 Zoster Vaccines (1 of 2) 11/26/2023 COVID-19 Vaccine (1 - 2023-2 5 season) 2024 Meningococcal B Vaccine Aged Out No l onger eligible based on patient's age to complete this topic Meningococcal Vaccine Aged Out No birgit soren eligible based on patient's age to complete this topic RSV Immunizations Under 20 Months Aged Out No longer eligible based on patient's age to complete this topic Insurance MEDICAID
[2024-12-21 09:43] LABS: Add Urine Microscopic? NO; Appearance Urine Clear (Clear); Glucose Urine UA Negative (Negative); Leukocyte Esterase Ur Negative LEU/UL (Negative); Nitrate Urine Negative (Negative); Specific Grav Ur <= 1.005 (1.010-1.020)
--- NOTE | 2024-12-21 09:45 | PC.NURSE ---
Pt in radiology for testing.
--- NOTE | 2024-12-21 09:52 | PC.NURSE ---
Pt returns from radiology. Resting in room on cot. Call light in reach.
[2024-12-21 10:08] LABS: HIV 1 P24 AG Negative (Negative); HIV 1/2 AB Negative (Negative)
--- OUTSIDE RECORDS SUMMARY | 2024-12-21 10:08 | XMS_ITS | Clinical Summary ---
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
[2024-12-21 10:31] VITALS: BP 147/92; PULSE 83; RESP 18; TEMP 36.6; O2SAT 97
[2024-12-22 18:34] LABS: RPR Non Reactive (Non Reactive)
== END 2024-12-21 10:35 | disposition home or self-care (01) ==
PROVIDERS: Emergency Provider Internal Medicine Critical Care Medicine; PCP Family Medicine
DX: N50.812 Left testicular pain (principal); I10 Essential (primary) hypertension; F17.210 Nicotine dependence, cigarettes, uncomplicated; Z79.899 Other long term (current) drug therapy; Z11.3 Encounter for screening for infections with a predominantly sexual mode of transmission
CPT/HCPCS: 36415; 76870; 81003; 86592; 87491; 87591; 87806; 93976; 99284

== ENCOUNTER 2025-01-10 04:39 | Emergency (ER) | payer BC, SELFPAY ==
--- NOTE | ~2025-01-10 | XR_ITS ---
Examination: XR chest 1V portable Clinical History: SHORTNESS OF BREATH X 3 WEEKS. Comparison: 06/12/2023 Technique: Portable AP Findings: Heart size normal. Diffusely increased interstitial markings. No acute bony abnormality. IMPRESSION: 1. Interstitial pulmonary edema and/or pneumonitis. Reviewed, dictated and finalized at location R.
[2025-01-10 04:39] VITALS: BP 165/84; PULSE 80; RESP 17; TEMP 37.1; O2SAT 95
--- NOTE | 2025-01-10 04:51 | ECG_ITS ---
Test Date: 2025-01-10 05:02:24 Measurements Intervals [place] Rate: 71 P: 38 OR: 148 QRS: 57 QRSD: 79 T: 45 QT: 372 QTc: 406 Interpretive Statements SINUS RHYTHM DELAYED PRECORDIAL R/S TRANSITION BORDERLINE ECG No previous ECG available for comparison Electronically Signed On 01-10-2025 06:08:51 CDT by Nhan Aguilera D.O.
--- NOTE | 2025-01-10 04:54 | ED.SOB ---
HPI - SOB/Dyspnea General Chief Complaint: Shortness of Breath/Dyspnea Stated Complaint: SOB Time Seen by Provider: 01/10/25 04:49 History of Present Illness HPI Narrative: Pt with hx of COPD presents with cough and SOB. Pt says he awoke SOB this morning and gave self neb and didn't get much relief so he came to ER. Pt admits to cough but denies fever or Cp or leg swelling. Related Data Home Medications ?Medication ?Instructions ?Recorded ?Confirmed ?Last Taken ?Type buspirone 10 mg tablet 15 mg PO TID 05/22/23 12/21/24 Unknown History topiramate 25 mg tablet 75 mg PO BID 05/26/23 12/21/24 Unknown History atomoxetine 100 mg capsule 100 mg PO DAILY 12/21/24 12/21/24 Unknown History olanzapine 10 mg tablet mg 12/21/24 Unknown History Allergies Allergy/AdvReac Type Severity Reaction Status Date / Time Penicillins Allergy Intermediate Unknown Verified 01/10/25 04:43 varenicline (Chantix) Allergy Intermediate Unknown Verified 01/10/25 04:43 Sulfa (Sulfonamide Allergy Mild Unknown Verified 01/10/25 04:43 Antibiotics) Review of Systems Review of Systems: All systems reviewed & are unremarkable except as noted in HPI and below PMFSH Past Medical History Medical History Diverticulosis of large intestine without perforation or abscess without bleeding Insomnia disorder with non-sleep disorder mental comorbidity Schizoaffective disorder, bipolar type Nicotine dependence LAZARUS (generalized anxiety disorder) Essential hypertension GERD without esophagitis Anxiety and depression Surgical History Surgical History History of removal of skin mole from Scalp as child Family History Family History Brother Family history of type 2 diabetes mellitus Father Family history of type 2 diabetes mellitus Social History Social History Smoking packs per day: 1 Smoking cigarettes per day: 20.0 Years smoked: 36 Smoking pack-years: 36.00 Smoking status: Current every day smoker Tobacco type: cigarettes Alcohol intake: former Drinks per week: 25 Alcohol use details: teen Substance use type: marijuana Living arrangements: with family Spiritual care concerns: No Exam Const: General: healthy appearing and no acute distress Nutritional Appearance: well nourished Orientation/consciousness: patient oriented x3 Limitations: no limitations HENMT: Mouth: Yes Normal oral and palatal mucosa present Throat: posterior oropharynx normal Neck: Neck: normal visual inspection Chest: Chest palpation & inspection: normal inspection of the chest Resp: Effort & Inspection: normal respiratory effort Auscultation: clear to auscultation bilaterally Cardio: Rate: regular rate Rhythm: regular rhythm GI: GI Palp: Yes Soft to palpation and No Tenderness to palpation present (GI) Auscultation: normal bowel sounds Skin: General skin exam: normal color Rashes: no rashes Wounds: no wounds Neuro: General: patient oriented x3, moves all extremities, no meningeal signs and no focal motor deficits Speech: normal speech Extrem: General: normal to inspection and no clubbing, cyanosis or edema Psych: Mental Status: mental status grossly normal Affect: normal affect Attitude: cooperative Course Vital Signs Vital signs: Vital Signs Temperature 98.7 F 01/10/25 04:39 Pulse Rate 80 01/10/25 04:39 Respiratory Rate 17 01/10/25 04:39 Blood Pressure 165/84 H 01/10/25 04:39 Pulse Oximetry 95 01/10/25 04:39 Oxygen Delivery Room Air 01/10/25 04:39 Temperature 98.7 F 01/10/25 04:39 Pulse Rate 80 01/10/25 04:39 Respiratory Rate 17 01/10/25 04:39 Blood Pressure 165/84 H 01/10/25 04:39 Pulse Oximetry 95 01/10/25 04:39 Oxygen Delivery Room Air 01/10/25 04:39 MDM - SOB/Dyspnea MDM Narrative Medical decision making narrative: will give neb and get ekg labs and cxr. cxr and labs unremarkable. Pt feels better after neb. home on prednisone. Differential Diagnosis Differential diagnosis: Likely acute exacerbation of chronic obstructive airways disease, congestive heart failure, community acquired pneumonia and pulmonary embolism (unlikely given hx and exam) Lab Data Attestation: I reviewed the patient's lab results. 01/10/25 05:08 01/10/25 05:08 Labs: Lab Results 01/10/25 Range/Units 05:08 WBC 6.8 (4.8-10.8) K/mm3 RBC 3.89 L (4.70-6.10) M/mm3 Hgb 12.9 L (14.0-18.0) g/dL Hct 37.4 L (40.0-54.0) % MCV 96.1 (78.0-102.0) fL MCH 33.2 H (27.0-31.0) pg MCHC 34.5 (32-36) g/dL RDW 12.6 (11.6-14.4) % Plt Count 291 (150-420) K/mm3 MPV 9.3 (8.7-11.0) fl Immature Gran % (Auto) 0.4 H (0.0-0.0) % Neut % (Auto) 44.7 L (50.0-70.0) % Lymph % (Auto) 42.3 H (18.0-42.0) % [place] % (Auto) 7.6 (2.0-11.0) % Eos % (Auto) 4.4 (1.0-6.0) % Baso % (Auto) 0.6 (0.0-1.0) % Lymph # (Auto) 2.89 (1.10-4.50) K/mm3 [place] # (Auto) 0.52 (0.10-0.90) K/mm3 Eos # (Auto) 0.30 (0.02-0.50) K/mm3 Baso # (Auto) 0.04 (0.00-0.10) K/mm3 Abs Immat Gran (auto) 0.03 H (0.00-0.00) K/mm3 Absolute Neuts (auto) 3.05 (1.70-7.20) K/mm3 Absolute Nucleated RBC 0.00 (0.00-0.00) K/mm3 Nucleated RBC % 0.0 (0-0.0) % Sodium 141 (137-145) mmol/L Potassium 3.8 (3.4-5.0) mmol/L Chloride 110 H (98-107) mmol/L Carbon Dioxide 21 L (22-30) mmol/L Anion Gap 10 (4-12) mmol/L BUN 15 (9-20) mg/dL Creatinine 1.38 H (0.7-1.3) mg/dL Estim Creat Clear Calc 62 ml/min Estimated GFR 54 L (59 - ) Glucose 117 H (65-110) mg/dL Calculated Osmolality 293 (285-295) mOsm/kg Calcium 9.7 (8.4-10.2) mg/dL Magnesium 1.9 (1.6-2.3) mg/dL Total Bilirubin 0.5 (0.2-1.3) mg/dL AST 32 (17-59) U/L ALT 20 (6-50) U/L Alkaline Phosphatase 76 (38-126) U/L NT-Pro-B Natriuret Pep < 20 (19.9-100) pg/mL Total Protein 7.6 (6.3-8.2) g/dL Albumin 4.1 (3.5-5.1) g/dL Imaging Data Attestation: I personally reviewed and interpreted this imaging study as follows: My impression: nad ECG Data EKG #1: Interpretation: nsr rate [address] or t wave changes Discharge Plan Discharge Clinical Impression: COPD (chronic obstructive pulmonary disease) Patient Disposition: Home Condition: Improved Instructions: Antibiotic Form, COPD (Chronic Obstructive Pulmonary Disease) (ED) Patient Language: Salvadorean Prescriptions: New prednisone 10 mg tablet See Taper PO DAILY 15 Days Qty: 45 0RF Taper: Prednisone Taper from 50 mg;15 days 50 mg DAILY for 3 Days and 0 Hour 40 mg DAILY for 3 Days and 0 Hour 30 mg DAILY for 3 Days and 0 Hour 20 mg DAILY for 3 Days and 0 Hour 10 mg DAILY for 3 Days and 0 Hour No Action atomoxetine 100 mg capsule 100 mg PO DAILY olanzapine 10 mg tablet hydroxyzine HCl 25 mg tablet 25 mg PO TID Qty: 10 0RF Rx Instructions: reported by psych as Vistaril (hydroxyzine palmoate) 25 mg TID for anxiety PRN topiramate 25 mg tablet 75 mg PO BID Invega Hafyera 1,092 mg/3.5 mL syringe 1,092 mg IM .ONCE [id number] Qty: 3.5 0RF atomoxetine 100 mg capsule 100 mg PO DAILY Qty: 10 0RF buspirone 10 mg tablet 15 mg PO TID escitalopram oxalate [Lexapro] 20 mg tablet 20 mg PO DAILY Qty: 10 0RF tamsulosin 0.4 mg capsule See Rx Instructions .ROUTE .COMPLEX Qty: 90 0RF Dose Instruction: TAKE 1 CAPSULE BY MOUTH EVERY DAY Rx Instructions: TAKE 1 CAPSULE BY MOUTH EVERY DAY albuterol sulfate 90 mcg/actuation HFA aerosol inhaler See Rx Instructions .ROUTE .COMPLEX Qty: 8.5 2RF Dose Instruction: INHALE 1 PUFF EVERY FOUR HOURS NEEDED FOR SHORTNESS OF BREATH WHEEZING OR COPD Rx Instructions: INHALE 1 PUFF EVERY FOUR HOURS NEEDED FOR SHORTNESS OF BREATH WHEEZING OR COPD Follow-up/Referrals: Jorge Mendez, DO [Primary Care Provider, Family Practice] Stand Alone Forms: Work/School Release IP
--- OUTSIDE RECORDS SUMMARY | 2025-01-10 04:59 | XMS_ITS | Data Portability ---
Author Organization [facility], [address] [facility] ([place]) Address [address] [place] [address] Care Team Providers Care Drafter Civil Name Role Phone DELPHINE PISANO Primary Care Provider SABINE GAITAN Referring Provider Assessment Encounter Date Assessment Date Assessment LastModified by Organization Details LastModified Time 10/12/2023 10/12/2023 Boris is here today for follow-up for tremors and migraines. These are both currently well-controlled . 1. Continue topiramate 75 mg twice a day. 2. All patient's question concerns were addressed. He agrees with the plan. 3. Follow-up in 6 months. [email or web address] Not available 10/12/2023 11:07:28 06/29/2024 06/29/2024 1. Migraine headaches. Those are under good control. We will continue topiramate 75 mg b.i.d. We will continue the topiramate 75 mg b.i.d. He will follow up in 6 months, but he will call if he has any problems in the meantime. 2. Tremors. Those are also under good control with the topiramate. SKK [email or web address] Not available 06/29/2024 14:10:05 12/29/2024 12/29/2024 1. Migraine, well controlled - Continue topiramate 75 mg twice daily. - Maintain medication refills through [facility] pill packs. - Follow up in 1 year; call sooner if migraines recur or worsen. 2. Tremor, well controlled - Normal coordination on exam; no tremor observed. - No changes to current regimen at this time. Follow up in 1 year. [email or web address] Not available 12/29/2024 10:36:08 Plan of Treatment Reminders Order Date Submit Date Provider Last Modified By Organization Details Last Modified Time Details Appointments Establish ed Patient 15.EST 2025 09:00A M Yolanda Mon Not available Not available Not available Lab None recorded. Referral None recorded. Procedures None recorded. Surgeries None recorded. Imaging None recorded. Medication Orders topiramat e 25 mg tablet 2023 024 [facility]acy #[id number], [address] [place], [address], 10/12/2023 11:01:51 topiramat e 50 mg tablet 2023 024 [facility]armacy #[id number], [address] [place], [address], 10/12/2023 11:01:52 Patient TargetsNo targets recorded. Patient InstructionsNo instructions recorded. Reason for Referral None Reported. Results Created Date Observation Date Name Description Value Unit Range Abnormal Flag Note LastModifiedBy Organization Detail LastModifiedTime 11/19/19 24 08/26/2022 imagi ng/nuvia tsai tic resul t No observ ation record ed. [email or web address] Not Available 11/19/2023 05:33:40 Result Notes None recorded. Problems Name Problem SNOMED Code Status Onset Date Resolution Date Notes Provider Name and Address Organization Details Recorded Time Migraine 38049951 Active 024 Yolanda Mon PA-C [address] [place] [address], [phone] , [facility] 12/29/2024 10:25:49 Tremor 22909678 Active 025 Milagro Lara MD [address] [place] [address], [phone] , [facility] 06/29/2024 10:14:14 Problem Notes None recorded. Procedures Surgical History Date Name Laterality Status Provider Name and Address Organization Details Recorded Time Colonoscopy with biopsy completed Not Available Health Note 10/05/2023 15:59:55 Imaging Results None recorded. Procedure Notes None recorded. Medical Equipment None Reported. Allergies Allergen ID Allergen Name Allergen Category Reaction Reaction Severity Criticality Documentation Date Start Date Code Code System Note Provider Name and Address Organization Details Recorded Time 969344 Substance with sulfonami de structure and antibacte rial mechanism of action (substanc e) medicatio n photosens itivity Not available Not available 05/04/20232016 42908 8003 SNOMED React ion: Photo sensi tivit y; Not Available [facility] 22:47:23 257565 Product containin g penicilli n (product) medicatio n rash Not available Not available 05/04/20232016 09963 8001 SNOMED React ion: Rash; Not Available [facility] 22:47:23 081983 varenicli ne tartrate medicatio n Not available Not available Not available 05/04/20232016 51812 4 RxNorm Not Available [facility] 4 22:47:23 Medications Name Sig Start Date Stop Date Status Note LastModified by Organization Details LastModified Time atorvastati n 40 mg tablet TAKE 1 TABLET BY MOUTH EVERY DAY 06/29 completed Not Available Not Available Not Available metformin 500 mg tablet TAKE 1 TALBET BY MOUTH TWICE A DAY 06/29 completed Not Available Not Available Not Available bupropion HCl SR 150 mg tablet,12 hr sustained-r elease TAKE 1 TABLET BY MOUTH TWICE A DAY 06/29 completed Not Available Not Available Not Available prednisone 10 mg tablet TAKE TABLETS DAILY IN DECREASIN G DOSES OF 6,5,4,3,2 ,1 DIRECTED 12/29 completed Not Available Not Available Not Available venlafaxine ER 75 mg capsule,ext ended release 24 hr TAKE 1 CAPSULE BY MOUTH IN THE MORNING 10/11 completed Not Available Not Available Not Available clindamycin HCl 300 mg capsule TAKE ONE CAPSULE BY MOUTH EVERY 8 HOURS 10/11 completed Not Available Not Available Not Available divalproex 250 mg tablet,mar yed release DOSE REDUCTION . TAKE 1 TABLET BY MOUTH ONCE A DAY AT BEDTIME 10/11 completed Not Available Not Available Not Available olanzapine 5 mg tablet Take 1 tablet every day by oral route. active Not Available Not Available No t Available venlafaxine ER 150 mg capsule,ext ended release 24 hr Take 1 capsule every day by oral route. active Not Available Not Available No t Available topiramate 25 mg tablet TAKE 1 TABLET BY MOUTH TWICE A DAY WITH 50MG active Not Available Not Available No t Available famotidine 20 mg tablet TAKE 1 TABLET BY MOUTH EVERY DAY NEEDED FOR INDIGESTI ON 10/11 completed Not Available Not Available Not Available tamsulosin 0.4 mg capsule TAKE 1 CAPSULE BY MOUTH EVERY DAY active Not Available Not Available No t Available lisinopril 10 mg tablet TAKE 2 TABLETS BY MOUTH EVERY DAY FOR 1 MONTH 10/11 completed Not Available Not Available Not Available divalproex 125 mg tablet,mar yed release TAKE 1 TABLET BY MOUTH AT BEDTIME 10/11 completed Not Available Not Available Not Available nicotine 21 mg/24 hr daily transdermal patch APPLY 1 PATCH TRANSDERM ALLY DAILY 12/29 completed Not Available Not Available Not Available lisinopril 30 mg tablet TAKE 1 TABLET BY MOUTH EVERY DAY 10/11 completed Not Available Not Available Not Available ergocalcife rol (vitamin D2) 1,250 mcg (50,000 unit) capsule TAKE 1 CAPSULE ORALLY WEEKLY FOR 8 WEEKS 10/11 completed Not Available Not Available Not Available albuterol sulfate HFA 90 mcg/actuati on aerosol inhaler INSTILL 1 PUFF EVERY 4 HOURS NEEDED FOR SHORTNESS OF BREATH OR WHEEZING FOR COPD active Not Available Not Available No t Available ondansetron 4 mg disintegrat ing tablet DISSOLVE 1 TABLET BY MOUTH EVERY 8 HOURS NEEDED FOR NAUSEA AND VOMITING *1 DAILY PER INS* 06/29 completed Not Available Not Available Not Available finasteride 5 mg tablet TAKE 1 TABLET BY MOUTH EVERY DAY 06/29 completed Not Available Not Available Not Available buspirone 15 mg tablet TAKE 1 TABLET BY MOUTH THREE TIMES A DAY WITH MEALS. DO NOT TAKE AT SAME TIME VISTARIL. active Not Available Not Available No t Available hydroxyzine pamoate 25 mg capsule TAKE 1 CAPSULE BY MOUTH THREE TIMES A DAY NEEDED DO NOT TAKE AT SAME TIME BUSPAR. active Not Available Not Available No t Available escitalopra m 10 mg tablet DOSE DECREASE. TAKE 1 TABLET BY MOUTH EVERY MORNING. DISCONTIN UE 20MG. DOSE. active Not Available Not Available No t Available escitalopra m 20 mg tablet TAKE 1 TABLET BY MOUTH EVERY DAY 06/29 completed Not Available Not Available Not Available aripiprazol e 5 mg tablet TAKE 1 TABLET BY MOUTH EVERYDAY AT BEDTIME 12/29 completed Not Available Not Available Not Available topiramate 50 mg tablet TAKE 1 TABLET BY MOUTH TWICE A DAY WITH 25MG active Not Available Not Available No t Available atomoxetine 100 mg capsule Take 1 capsule every day by oral route. active Not Available Not Available No t Available cholecalcif aracelis (vitamin D3) 1,250 mcg (50,000 unit) capsule TAKE 1 CAPSULE BY MOUTH ONCE WEEKLY 10/11 completed Not Available Not Available Not Available venlafaxine ER 150 mg tablet,exte nded release 24 hr TAKE ONE CAPSULE BY MOUTH EVERY MORNING STARTING AFTER COMPLETIN G 75MG MONITOR BLOOD PRESSURE. 06/29 completed Not Available Not Available Not Available fluticasone furoate 100 mcg-vilante rol 25 mcg/dose inhalation powder INHALE 1 PUFF EVERY 24 HOURS 06/29 completed Not Available Not Available Not Available Invega Hafyera 1,092 mg/3.5 mL intramuscul ar syringe active Not Available Not Available N ot Available Vitals Date Recorded Body weight Heart rate Oxygen saturation Oxygen saturation in Arterial blood by Pulse oximetry Systolic And Diastolic Provider Name and Address Organization Details Last Updated DateTime 5 65785.0 9 g 80 /min 99 % 99 % 120/78 mm[Hg] [facility] 5 09:46:51 Date Recorded Body weight Heart rate Oxygen saturation Oxygen saturation in Arterial blood by Pulse oximetry Systolic And Diastolic Provider Name and Address Organization Details Last Updated DateTime 4 57328.8 7 g 82 /min 100 % 100 % 106/70 mm[Hg] [facility] 4 10:53:35 Date Recorded Body weight Heart rate Oxygen saturation Oxygen saturation in Arterial blood by Pulse oximetry Systolic And Diastolic Provider Name and Address Organization Details Last Updated DateTime 5 00969.0 6 g 92 /min 98 % 98 % 132/86 mm[Hg] [facility] 10:18:44 Social History Question Answer Notes LastModified by Organizat ion Details LastModified Time Tobacco Smoking Status Current Some Day Sm[facility]24 09:50:42 Do You Have An Advance Directive? No [email or web address] Information not available 10/05/2023 What Is Your Level Of Caffeine Consumption? Moderate [email or web address] Information not available 10/05/2023 Which Illicit Or Recreational Drugs Have You Used? Marijuana [email or web address] Information not available 10/05/2023 How Many Times Per Week Do You Exercise? Less Than 1 Time Per Week [email or web address] Information not available 10/05/2023 Smokeless Tobacco? Former Smokeless Tobacco User [email or web address] Information not available 10/05/2023 How Many Packs Per Day (PPD)? 1 Pack Per Day [email or web address] Information not available 10/05/2023 How Long Have You Smoked? 34 Years [email or web address] Information not available 10/05/2023 Do You Have A Medical Power Of News Specialist? No [email or web address] Information not available 10/05/2023 What Was The Date Of Your Most Recent Tobacco Screening? 10/12/2023 [email or web address] Information not available 10/05/2023 What Is Your Relationship Status? [email or web address] Information not available 10/05/2023 Sex: Unknown Functional Status Question Answer Note LastModified by Organizat ion Details LastModified Time How many times per week do you consume alcohol? Less than 1 time per week [email or web address] Information not available 10/05/2023 Do you use any illicit or recreational drugs? Yes [email or web address] Information not available 10/05/2023 What is your level of alcohol consumption? Occasional [email or web address] Information not available 10/05/2023 Are you currently employed? 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 None [email or web address] Information not available 10/05/2023 Mental Status None recorded. Family History Relationship Description Onset Age of this Age Resolved Age Notes LastModified by Organization Details LastModified Time Mother Chronic obstructive pulmonary disease [email or web address] Not available 2023 15:59:54 Mother Cerebrovascu lar accident [email or web address] Not available 04/2023 15:59:54 Father Chronic obstructive pulmonary disease [email or web address] Not available 2023 15:59:54 Father Diabetes mellitus [email or web address] Not available 2023 15:59:54 Father Heart disease [email or web address] Not available 2023 15:59:54 Father Hypertensive disorder [email or web address] Not available 2023 15:59:54 Brother Chronic obstructive pulmonary disease [email or web address] Not available 2023 15:59:54 Brother Diabetes mellitus [email or web address] Not available 2023 15:59:54 Brother Heart disease [email or web address] Not available 2023 15:59:54 Brother Hypertensive disorder [email or web address] Not available 2023 15:59:54 Brother Kidney disease [email or web address] Not available 2023 15:59:54 Maternal Grandmother Chronic obstructive pulmonary disease [email or web address] Not available 2023 15:59:54 Maternal Grandmother Diabetes mellitus [email or web address] Not available 2023 15:59:54 Maternal Grandmother Heart disease [email or web address] Not available 2023 15:59:54 Medical History Condition Response Diabetes Y Anxiety Disorder Y Bleeding Disorder N Attention-deficit Hyperactivity Disorder Y High Blood Pressure Y Arthritis N Hyperlipidemia N Cancer N Stroke N Thyroid Problems N Asthma Y Depression Y COPD Y Anemia N Seizures N Heart Disease N Fibromyalgia N Osteoporosis N Kidney Disease N Past Encounters Encounter ID Performer Location Encounter Start Date Encounter Closed Date Diagnosis/Indication Diagnosis SNOMED-CT Code Diagnosis ICD10 Code Diagnosis IMO Codes Diagnosis Note [id number] Yolanda Mon PA-C [address] [facility] ([place]) [address] [place] [address] 10/12/2023 10:42:49 10/12/2023 11:03:16 Tremor 25709141 R25.1 Migraine 38690727 G43.90 9 [id number] Milagro Lara MD [address] [facility] ([place]) [address] [place] [address] 06/29/2024 09:31:15 06/29/2024 12:06:35 Migraine 52468909 G43.909 Tremor 42204757 R25.1 21387 Long-term current use of drug therapy 356166424 Z79.666 9031410 [id number] Yolanda Mon PA-C [address] [facility] ([place]) [address] [place] [phone] 12/29/2024 10:04:43 12/29/2024 10:30:35 Migraine 06983130 G43.909 Tremor 47805696 R25.1 20443 Health Concerns Section Related Observation LastModified by Organization Detai ls LastModified Time None Recorded Concern Status LastModified by Organization Details LastModified Time None Recorded Advance Directives Directive N: Payers Insurance Date Sequence Insurance Name Policy Number Policy Abdullahi Covered Member ID Abdullahi Member ID Guarantor Name 12/29/2024 2 [facility] ON OR AFTER 10/04/20 (MEDICAID REPLACEMENT - HMO) Boris Saravia [id number] Boris Saravia 12/29/2024 1 [facility] PRIOR TO 10/04/2020 (MEDICAID REPLACEMENT - HMO) [id number] Boris Saravia [id number] Boris Saravia 12/29/2024 1 [facility] Boris Saravia [id number] Boris Saravia 12/29/2024 1 [facility] [id number] Boris Saravia [id number] Boris Saravia Notes Date Note Type Note Provider Name and Address Organization Details Recorded Time 10/12/2023 text/html ROS as noted in the HPI Boris is here today for follow-up for tremors and migraines. He was last seen by me April 2023. He currently is on topiramate 75 mg twice a day. He denies any side effects to the medication. The patient reports since we increased his medication last his tremors have gone away. Him or his have not noticed any tremors with daily activities. The patient reports she is also not had any migraines recently. He might occasionally get a headache but he will take swlh-tgh-mukoppy medication which is helpful. He overall is very happy with his improvement. He denies any other changes to his medical history, surgeries or hospitalizations. He has no other new complaints today. Yolanda Mon PA-C [address] [place] [address], [phone], [facility] 10/12/2023 11:07:49 06/29/2024 text/html The patient is a 48 -year-old male who returns today for follow-up of his migraine headaches and tremor. He is doing very well. He states that he has a sinus headache about once per week but has not had any migraines. He is on topiramate 75 mg b.i.d. That is working well. He has not noticed any tremors lately. When he has a sinus headache, he will take Tylenol or Aleve and the headache resolves. He denies any new medical problems since last being seen. He denies any side effects to the topiramate.CHAPO Lara MD [address] [place] [address], [phone], [facility] 07/02/2024 22:12:18 12/29/2024 text/html ROS as noted in the HPI 49-year-old male presents for follow-up of migraines and tremor. Reports a busy summer with no migraine episodes during this period. Notes only occasional mild, non-migraine headaches that are relieved with gwaw-fat-vxbvmvi medication. Denies noticing any tremors in his hands and states eating, drinking, and writing are unaffected. He confirms continued use of topiramate at 75 mg twice daily without side effects. No surgeries or hospitalizations over the past year. Medications appear unchanged, and he receives medications via [facility] pill packs. Yolanda Mon PA-C [address] [place] [address], [phone], [facility] 12/29/2024 10:36:29
--- OUTSIDE RECORDS SUMMARY | 2025-01-10 05:00 | XMS_ITS | Clinical Summary ---
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
[2025-01-10] MEDS: IPRATROPIUM 0.5 MG/ALBUTEROL SULFATE 2.5 MG (BASE) AMPUL.NEB 3 ML INHALATION (05:06)
[2025-01-10 05:12] LABS: Hematocrit 37.4 % (40.0-54.0); Hemoglobin 12.9 g/dL (14.0-18.0); Immature Granulocyte Percent A 0.4 % (0.0-0.0); Lymphocytes Absolute Auto 2.89 K/mm3 (1.10-4.50); Mean Corpuscular HGB Conc 34.5 g/dL (32-36); Mean Corpuscular Hemoglobin 33.2 pg (27.0-31.0); Mean Corpuscular Volume 96.1 fL (78.0-102.0); Nucleated Red Blood Cells Absolute Auto 0.00 K/mm3 (0.00-0.00); Nucleated Red Blood Cells Perc 0.0 % (0-0.0); Platelet Count Result 291 K/mm3 (150-420); Red Blood Count 3.89 M/mm3 (4.70-6.10); White Blood Count 6.8 K/mm3 (4.8-10.8)
[2025-01-10 05:24] LABS: Alanine Aminotransferase 20 U/L (6-50); Albumin Level 4.1 g/dL (3.5-5.1); Alkaline Phosphatase 76 U/L (38-126); Anion Gap 10 mmol/L (4-12); Aspartate Amino Transferase 32 U/L (17-59); Bilirubin,Total 0.5 mg/dL (0.2-1.3); Blood Urea Nitrogen 15 mg/dL (9-20); Calcium 9.7 mg/dL (8.4-10.2); Carbon Dioxide 21 mmol/L (22-30); Chloride 110 mmol/L (98-107); Estimated CRCL calculation 62 ml/min; Estimated Glomerular Filt Rate 54; Glucose 117 mg/dL (65-110); Magnesium 1.9 mg/dL (1.6-2.3); Osmolality Calculated 293 mOsm/kg (285-295); Potassium 3.8 mmol/L (3.4-5.0); Sodium 141 mmol/L (137-145); Total Protein 7.6 g/dL (6.3-8.2)
[2025-01-10 05:32] LABS: NT Pro B Type Natriuretic Pept < 20 pg/mL (19.9-100)
[2025-01-10 06:05] VITALS: BP 133/86; PULSE 71; RESP 16; TEMP 37; O2SAT 96
--- NOTE | 2025-01-12 13:24 | PC.NURSE ---
blood culture, preliminary, no growth
--- NOTE | 2025-01-16 13:06 | PC.NURSE ---
preliminary blood culture results: no growth in 48 hours
--- NOTE | 2025-01-17 13:40 | PC.NURSE ---
blood, final ,no growth
--- NOTE | 2025-01-19 12:20 | PC.NURSE ---
FINAL BLOOD CULTURE REPORT; NO GROWTH IN 5 DAYS
== END 2025-01-10 06:05 | disposition home or self-care (01) ==
PROVIDERS: Emergency Provider Emergency Medicine; PCP Family Medicine
DX: J44.9 Chronic obstructive pulmonary disease, unspecified (principal); I10 Essential (primary) hypertension; F17.210 Nicotine dependence, cigarettes, uncomplicated
CPT/HCPCS: 36415; 71045; 80053; 83735; 83880; 85025; 87040; 93005; 96374; 99284; J2919

== ENCOUNTER 2025-01-25 12:43 | Outpatient (CLI) | payer BC, SELFPAY ==
--- NOTE | ~2025-01-25 | CT_ITS ---
EXAMINATION: CT chest high resolution wo wy DATE: 01/25/2025 12:55 INDICATION: Hemoptysis TECHNIQUE: Computed tomography (CT) of the chest was performed without intravenous contrast. The dose-length product was 452.23 mGy-cm. COMPARISON: CT dated 12/12/2024 FINDINGS: Heart size normal. No thoracic lymphadenopathy. Mild atherosclerosis. No significant pleural or pericardial effusion. Chronic lingular atelectasis/scarring. No focal airspace consolidation. There is a 2 mm right upper lobe nodule. There is a 2 mm. Fissural nodule on the right. There is a healed left seventh rib fracture. IMPRESSION: 1. Small pulmonary nodules measuring 2 mm or less, likely benign. Consider follow-up low dose CT chest in 12 months. Reviewed, dictated and finalized at location O. IMPRESSION: 1. Small pulmonary nodules measuring 2 mm or less, likely benign. Consider foll ow-up low dose CT chest in 12 months.
--- OUTSIDE RECORDS SUMMARY | 2025-01-25 15:56 | XMS_ITS | Clinical Summary ---
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
== END 2025-01-25 12:44 | disposition home or self-care (01) ==
LOC: CHSIMG 12:45
PROVIDERS: PCP Family Medicine; Visit Provider Family Medicine
DX: R04.2 Hemoptysis (principal); R91.8 Other nonspecific abnormal finding of lung field
CPT/HCPCS: 71250